=== PATIENT | female | born 1965 | race Two or more races ===

== ENCOUNTER 2018-05-01 11:48 | Emergency (ER) | payer MEDICARE ==
[~2018-05-01] VITALS: Ht 165.1 cm; Wt 99.8 kg
--- OUTSIDE RECORDS SUMMARY | ~2018-05-01 | XMS | Clinical Summary ---
Demographics + + + | Address | [address] | | | [place] [address] | + + + | Home Phone | | + + + | Preferred Language | Unknown | + + + | Marital Status | | + + + | Samaritan Affiliation | 1013 | + + + | Race | Unknown | + + + | Ethnic Group | Unknown | + + + Author + + + | Author | [facility] | | | and [place] | + + + | Organization | [facility] | | | and [place] | + + + | Address | Unknown | + + + | Phone | Unavailable | + + + Support + + +---------+ + | Name | Relationship | Address | Phone | + + +---------+ + | ALEIDA NIEVES ECON | Unknown | | + + +---------+ + | ALEIDA NIEVES | ECON | Unknown | | + + +---------+ + Care Team Providers + +------+ + | Care Healthcare Advisory Services Manager Name | Role | Phone | + +------+ + | Judith Wilson MD | PP | | + +------+ + Allergies Not on File Current Medications Not on file Active Problems Not on file Social History + +-------+ +--------+------+ | Tobacco Use | Types | Packs/Day | Years | Date | | | | | Used | | + +-------+ +--------+------+ | Never Assessed | | | | | + +-------+ +--------+------+ + + + | Sex Assigned at | Date Recorded | | | | + + + | Not on file | | + + + Plan of Treatment + + + + + | Health Maintenance | Due Date | Last Done | Comments | + + + + + | Vaccine: | | | | | Dtap/Tdap/Td (1 - | 2 | | | | Tdap) | | | | + + + + + | Cervical Cancer | | | | | Screening (Pap) | 3 | | | + + + + + | Vaccine: Influenza | | | | | (#1) | 8 | | | + + + + + Results Not on filefrom Last 3 Months"
[2018-05-01] MEDS ORDERED: LYRICA100 MG PO (12:01)
[2018-05-01] MEDS ORDERED: DULOXETINE HCL60 MG PO (12:01)
[2018-05-01] MEDS ORDERED: CLONAZEPAM0.5 MG PO (12:01)
[2018-05-01] MEDS ORDERED: TIZANIDINE HCL4 MG PO (12:01)
[2018-05-01] MEDS ORDERED: TRAZODONE HCL100 MG PO (12:02)
[2018-05-01] MEDS ORDERED: MORPHINE SULFAT15 M1 PO (12:02)
[2018-05-01] MEDS ORDERED: CARBIDOPA-LEVO1 EAC2 PO (12:02)
[2018-05-01] MEDS ORDERED: RISPERDAL0.25 MG PO (12:03)
--- NOTE | 2018-05-01 16:53 | EKG ---
[facility] [address] [facility] [place], [place] [address] Signed Normal sinus rhythm Normal ECG No previous ECGs available Confirmed by ANTONIO MANSFIELD DO ([id number]) on 05/01/2018 4:52:23 PM Electronically Signed By: ANTONIO MANSFIELD DO 05/01/18 1653 PATIENT NAME: CARMEN ROBLES Electrocardiogram DATE OF : 61 PHYSICIAN: ANTONIO MANSFIELD DO REPORT #: [id number] REPORT IS CONFIDENTIAL AND NOT TO BE RELEASED WITHOUT AUTHORIZATION
== END 2018-05-01 14:18 | disposition home or self-care (01) ==
LOC: ED 11:48
DX: R07.9 Chest pain, unspecified (principal); I10 Essential (primary) hypertension; F17.200 Nicotine dependence, unspecified, uncomplicated; Z88.5 Allergy status to narcotic agent; Z79.899 Other long term (current) drug therapy
CPT/HCPCS: 71046; 80053; 83690; 84484; 85025; 93005; 93010; 99285

== ENCOUNTER → 2019-07-16 | Emergency (ER) | payer MEDICARE ==
[~2019-07-16] MED LIST: AMOX TR-K CLV1 EAC1 PO; CARBIDOPA-LEVO1 EAC2 PO; CLONAZEPAM0.5 MG PO; DULOXETINE HCL60 MG PO; KEFLEX500 MG PO; LISINOPRIL20 MG PO; LYRICA100 MG PO; MORPHINE SULFAT15 M1 PO; ONDANSETRON ODT8 MG PO; PEPCID20 MG PO; RISPERDAL0.25 MG PO; SUDOGEST60 MG PO; TIZANIDINE HCL4 MG PO; TRAZODONE HCL100 MG PO; ZYRTEC10 M3 PO
--- OUTSIDE RECORDS SUMMARY | ~2019-07-16 | XMS | Encounter Summary ---
Demographics + + + | Address | [address] | | | [place] [address] | + + + | Home Phone | | + + + | Preferred Language | Unknown | + + + | Marital Status | | + + + | Presybeterian Affiliation | 1013 | + + + | Race | Unknown | + + + | Ethnic Group | Unknown | + + + Author + + + | Author | [facility] | | | and [place] | + + + | Organization | [facility] | | | and [place] | + + + | Address | Unknown | + + + | Phone | Unavailable | + + + Support + + +---------+ + | Name | Relationship | Address | Phone | + + +---------+ + | ALEIDA ROBLES ECON | Unknown | | + + +---------+ + | ALEIDA ROBLES | ECON | Unknown | | + + +---------+ + Care Team Providers + +------+ + | Care Automotive Project Engineer Name | Role | Phone | + +------+ + | Martinez Rahman MD | PCP | | + +------+ + Encounter Details +--------+ + + + + | Date | Type | Department | Care Team | Description | +--------+ + + + + | 05/24/ | Abstract | [facility] | [facility] Rahman | | | 2019 | [facility] | MD [place] [address] | | | | | [address] | [place] | | | | | [place] | [address] | | | | | [address] | | | | | | [phone] | | | +--------+ + + + + Social History + +-------+ +--------+------+ | Tobacco Use | Types | Packs/Day | Years | Date | | | | | Used | | + +-------+ +--------+------+ | Current Every Day | | 0.5 | 20 | | | Smoker | | | | | + +-------+ +--------+------+ + +---+---+---+ | Smokeless Tobacco: | | | | | Never Used | | | | + +---+---+---+ + + +---------+ + | Alcohol Use | Drinks/We | oz/Week | Comments | | | ek | | | + + +---------+ + | No | | | | + + +---------+ + + + + | Sex Assigned at | Date Recorded | | | | + + + | Not on file | | + + + + + + + | Job Start Date | Occupation | Industry | + + + + | Not on file | Not on file | Not on file | + + + + + + + + | Travel History | Travel Start | Travel End | + + + + + + | No recent travel history available. | + + documented as of this encounter Plan of Treatment +--------+---------+ + + + | Date | Type | Specialty | Care Team | Description | +--------+---------+ + + + | 07/26/ | Office | Family Medicine | Martinez Rahman | | | 2019 | Visit | | MD [place] [address] | | | | | | [place] | | | | | | [phone] | | | | | | | | +--------+---------+ + + + documented as of this encounter Procedures + +--------+ + + + | Procedure Name | Priori | Date/Time | Associated Diagnosis | Comments | | | ty | | | | + +--------+ + + + | EXTERNAL LAB: PAP | Routin | 12/22/2013 | | Results for this | | SMEAR | e | | | procedure are in the | | | | | | results section. | + +--------+ + + + | EXTERNAL LAB: HIGH | Routin | 12/22/2013 | | Results for this | | RISK HPV | e | | | procedure are in the | | | | | | results section. | + +--------+ + + + documented in this encounter Results External Lab: PAP Smear (12/22/2013) + + + + + + | Component | Value | Ref Range | Performed | Pathologist | | | | | At | Signature | + + + + + + | Pap Smear, | No evidence of | | EXTERNAL | | | External | intraepithelial lesion | | LAB | | | | or malignancy | | | | + + + + + + + +---------+ + + | Performing | Address | City/State/Zipcode | Phone Number | | Organization | | | | + +---------+ + + | EXTERNAL LAB | | | | + +---------+ + + External Lab: High Risk HPV (12/22/2013) + + + + + + | Component | Value | Ref Range | Performed | Pathologist | | | | | At | Signature | + + + + + + | EXTERNAL: | Negative | | EXTERNAL | | | HIGH RISK | | | LAB | | | HPV | | | | | + + + + + + + +---------+ + + | Performing | Address | City/State/Zipcode | Phone Number | | Organization | | | | + +---------+ + + | EXTERNAL LAB | | | | + +---------+ + + documented in this encounter Visit Diagnoses Not on filedocumented in this encounter"
--- OUTSIDE RECORDS SUMMARY | ~2019-07-16 | XMS | Encounter Summary ---
Demographics + + + | Address | [address] | | | [place] [address] | + + + | Home Phone | | + + + | Preferred Language | Unknown | + + + | Marital Status | | + + + | Taoism Affiliation | 1013 | + + + | Race | Unknown | + + + | Ethnic Group | Unknown | + + + Author + + + | Author | [facility] | | | and [place] | + + + | Organization | [facility] | | | and [...] Team Providers + +------+ + | Care Space Buyer Name | Role | Phone | + +------+ + | Martinez Rahman MD | PCP | | + +------+ + Encounter Details +--------+ + + + + | Date | Type | Department | Care Team | Description | +--------+ + + + + | 04/25/ | Abstract | [facility] | Martinez Rahman | | | 2019 | | [facility] | MD [place] [address] | | | | | [address] | [address] [place] | | | | | [place] | [address] | | | | | [address] | | | | | | [phone] | | | +--------+ + + + [...] [place] | | | | | | [id number] | | | | | | | | +--------+---------+ + + + documented as of this encounter Procedures + +--------+ + + + | Procedure Name | Priori | Date/Time | Associated Diagnosis | Comments | | | ty | | | | + +--------+ + + + | EXTERNAL LAB: MOSHE | Routin | 04/14/2019 | | Results for this | | | e | | | procedure are in the | | | | | | results section. | + +--------+ + + + | EXTERNAL LAB: | Routin | 04/14/2019 | | Results for this | | GLUCOSE | e | | | procedure are in the | | | | | | results section. | + +--------+ + + + | EXTERNAL LAB: | Routin | 04/14/2019 | | Results for this | | TROPONIN T | e | | | procedure are in the | | | | | | results section. | + +--------+ + + + | EXTERNAL LAB: LIPASE | Routin | 04/14/2019 | | Results for this | | | e | | | procedure are in the | | | | | | results section. | + +--------+ + + + | EXTERNAL LAB: ALT | Routin | 04/14/2019 | | Results for this | | | e | | | procedure are in the | | | | | | results section. | + +--------+ + + + | EXTERNAL LAB: AST | Routin | 04/14/2019 | | Results for this | | | e | | | procedure are in the | | | | | | results section. | + +--------+ + + + | EXTERNAL LAB: | Routin | 04/14/2019 | | Results for this | | ALKALINE PHOSPHATASE | e | | | procedure are in the | | | | | | results section. | + +--------+ + + + | EXTERNAL LAB: | Routin | 04/14/2019 | | Results for this | | BILIRUBIN, TOTAL | e | | | procedure are in the | | | | | | results section. | + +--------+ + + + | EXTERNAL LAB: | Routin | 04/14/2019 | | Results for this | | ALBUMIN | e | | | procedure are in the | | | | | | results section. | + +--------+ + + + | EXTERNAL LAB: | Routin | 04/14/2019 | | Results for this | | PROTEIN, TOTAL | e | | | procedure are in the | | | | | | results section. | + +--------+ + + + | EXTERNAL LAB: | Routin | 04/14/2019 | | Results for this | | CALCIUM | e | | | procedure are in the | | | | | | results section. | + +--------+ + + + | EXTERNAL LAB: CARBON | Routin | 04/14/2019 | | Results for this | | DIOXIDE | e | | | procedure are in the | | | | | | results section. | + +--------+ + + + | EXTERNAL LAB: | Routin | 04/14/2019 | | Results for this | | CHLORIDE | e | | | procedure are in the | | | | | | results section. | + +--------+ + + + | EXTERNAL LAB: | Routin | 04/14/2019 | | Results for this | | POTASSIUM | e | | | procedure are in the | | | | | | results section. | + +--------+ + + + | EXTERNAL LAB: SODIUM | Routin | 04/14/2019 | | Results for this | | | e | | | procedure are in the | | | | | | results section. | + +--------+ + + + | EXTERNAL LAB: | Routin | 04/14/2019 | | Results for this | | URINALYSIS | e | | | procedure are in the | | | | | | results section. | + +--------+ + + + | EXTERNAL LAB: CBC | Routin | 04/14/2019 | | Results for this | | | e | | | procedure are in the | | | | | | results section. | + +--------+ + + + | EXTERNAL LAB: Migue TYPE | Routin | 04/14/2019 | | Results for this | | NATURETIC PEPTIDE | e | | | procedure are in the | | | | | | results section. | + +--------+ + + + | EXTERNAL LAB: EGFR | Routin | 04/14/2019 | | Results for this | | | e | | | procedure are in the | | | | | | results section. | + +--------+ + + + | EXTERNAL LAB: | Routin | 04/14/2019 | | Results for this | | CREATININE | e | | | procedure are in the | | | | | | results section. | + +--------+ + + + | URINALYSIS, REFLEX | Routin | 04/14/2019 | | Results for this | | MICROSCOPIC AND/OR | e | | | procedure are in the | | CULTURE | | | | results section. | + +--------+ + + + | CBC WITH | Routin | 04/14/2019 | | Results for this | | DIFFERENTIAL | e | | | procedure are in the | | | | | | results section. | + +--------+ + + + | COMPREHENSIVE | Routin | 04/14/2019 | | Results for this | | METABOLIC PANEL | e | | | procedure are in the | | | | | | results section. | + +--------+ + + + documented in this encounter Results Urinalysis, Reflex Microscopic and/or Culture (04/14/2019) + + + + + + | Component | Value | Ref Range | Performed | Pathologist | | | | | At | Signature | + + + + + + | COLLECTION | Clean Catch | | REFERENCE | | | METHOD 1 | | | LAB | | | | | | [facility] | | + + + + + + | Color | Yellow | Light Yellow, | REFERENCE | | | | | Yellow | LAB | | | | | | [facility] | | + + + + + + | Clarity | Slightly Cloudy | | REFERENCE | | | | | | LAB | | | | | | [facility] | | + + + + + + | Bilirubin, | Negative | Negative | REFERENCE | | | Urine | | | LAB | | | | | | [facility] | | + + + + + + | Urobilinoge | < 0.2 mg/dL | < 0.2 mg/dL, | REFERENCE | | | n, Urine | | 1.0 mg/dL, 4.0 | LAB | | | | | mg/dL, Normal, | [facility] | | | | | 1.0 E.U./dL, | | | | | | 0.2 E.U./dL, | | | | | | 0.2 mg/dL, | | | | | | Negative, 1 | | | | | | mg/dL, <2.0 | | | | | | mg/dL | | | + + + + + + | Nitrite, | Negative | Negative | REFERENCE | | | Urine | | | LAB | | | | | | [facility] | | + + + + + + | WBC UA | 30 (A) | 0 - 4 /HPF | REFERENCE | | | | | | LAB | | | | | | [facility] | | + + + + + + | CRYSTAL UA | Negative | | REFERENCE | | | | | | LAB | | | | | | [facility] | | + + + + + + | BACTERIA UA | 1+ (A) | Negative /HPF | REFERENCE | | | | | | LAB | | | | | | [facility] | | + + + + + + | SQUAMOUS | 0-2 | 0 - 2 /LPF | REFERENCE | | | EPITHELIAL | | | LAB | | | UA | | | [facility] | | + + + + + + | MUCUS UA | Present (A) | Negative /LPF | REFERENCE | | | | | | LAB | | | | | | [facility] | | + + + + + + + + | Specimen | + + | Urine | + + + + + + + | Performing | Address | City/State/Zipcode | Phone Number | | Organization | | | | + + + + + | REFERENCE LAB | [address] | [place] [address] | [phone] | | [facility] | | | | + + + + + External Lab: Lipase (04/14/2019) + +-------+ + + + | Component | Value | Ref Range | Performed | Pathologist | | | | | At | Signature | + +-------+ + + + | Lipase, | 39 | 11 - 82 | REFERENCE | | | External | | | LAB | | | | | | [facility] | | + +-------+ + + + + + + + + | Performing | Address | City/State/Zipcode | Phone Number | | Organization | | | | + + + + + | REFERENCE LAB | [address] | [place] [address] | [phone] | | [facility] | | | | + + + + + External Lab: Urinalysis (04/14/2019) + + + + + + | Component | Value | Ref Range | Performed | Pathologist | | | | | At | Signature | + + + + + + | UA Blood, | Negative | | REFERENCE | | | External | | | LAB | | | | | | [facility] | | + + + + + + | UA Glucose, | Normal | | REFERENCE | | | External | | | LAB | | | | | | [facility] | | + + + + + + | UA Ketones, | Negative | | REFERENCE | | | External | | | LAB | | | | | | [facility] | | + + + + + + | UA Ph, | 6 | 5 - 9 | REFERENCE | | | External | | | LAB | | | | | | [facility] | | + + + + + + | UA | Negative | | REFERENCE | | | Proteins, | | | LAB | | | External | | | [facility] | | + + + + + + | UA RBC, | 2 | 0 - 4 | REFERENCE | | | External | | | LAB | | | | | | [facility] | | + + + + + + | UA Specific | 1.016 | 1.005 - 1.03 | REFERENCE | | | [place], | | | LAB | | | External | | | [facility] | | + + + + + + | UA | Small | | REFERENCE | | | Leukocyte | | | LAB | | | Esterase, | | | [facility] | | | External | | | | | + + + + + + + + + + + | Performing | Address | City/State/Zipcode | Phone Number | | Organization | | | | + + + + + | REFERENCE LAB | [address] | [place] [address] | [phone] | | [facility] | | | | + + + + + CBC with Differential (04/14/2019) + +-------+ + + + | Component | Value | Ref Range | Performed | Pathologist | | | | | At | Signature | + +-------+ + + + | MCH | 31.0 | 27.0 - 33.0 pg | REFERENCE | | | | | | LAB | | | | | | [facility] | | + +-------+ + + + | MCHC | 34.0 | 30.0 - 36.0 | REFERENCE | | | | | g/dL | LAB | | | | | | [facility] | | + +-------+ + + + | % Basophils | 0.9 | 0.0 - 2.0 % | REFERENCE | | | | | | LAB | | | | | | [facility] | | + +-------+ + + + + + | Specimen | + + | Blood | + + + + + + + | Performing | Address | City/State/Zipcode | Phone Number | | Organization | | | | + + + + + | REFERENCE LAB | [facility] | [place] [address] | [phone] | | [facility] | | | | + + + + + External Lab: CBC (04/14/2019) + +-------+ + + + | Component | Value | Ref Range | Performed | Pathologist | | | | | At | Signature | + +-------+ + + + | WBC, | 10.2 | 4.5 - 11 | REFERENCE | | | External | | | LAB | | | | | | [facility] | | + +-------+ + + + | HGB, | 14.3 | 12 - 16 | REFERENCE | | | External | | | LAB | | | | | | [facility] | | + +-------+ + + + | HCT, | 42.3 | 35 - 45 | REFERENCE | | | External | | | LAB | | | | | | [facility] | | + +-------+ + + + | PLT, | 421 | 140 - 440 | REFERENCE | | | External | | | LAB | | | | | | [facility] | | + +-------+ + + + | Neutrophils | 54.5 | 39 - 80 | REFERENCE | | | %, | | | LAB | | | External | | | [facility] | | + +-------+ + + + | Lymphocytes | 36.2 | 24 - 44 | REFERENCE | | | %, | | | LAB | | | External | | | [facility] | | + +-------+ + + + | Monocytes | 6.6 | 0 - 12 | REFERENCE | | | %, External | | | LAB | | | | | | [facility] | | + +-------+ + + + | Eosinophils | 1.8 | 0 - 6 | REFERENCE | | | %, | | | LAB | | | External | | | [facility] | | + +-------+ + + + | RBC, | 4.67 | 3.8 - 5.1 | REFERENCE | | | External | | | LAB | | | | | | [facility] | | + +-------+ + + + | MCV, | 91 | 81 - 99 | REFERENCE | | | External | | | LAB | | | | | | [facility] | | + +-------+ + + + | RDW, | 13.4 | 10.5 - 15 | REFERENCE | | | External | | | LAB | | | | | | [facility] | | + +-------+ + + + + + + + + | Performing | Address | City/State/Zipcode | Phone Number | | Organization | | | | + + + + + | REFERENCE LAB | [address] | [place] [address] | [phone] | | [facility] | | | | + + + + + Comprehensive Metabolic Panel (04/14/2019) + +--------+ + + + | Component | Value | Ref Range | Performed | Pathologist | | | | | At | Signature | + +--------+ + + + | Anion Gap | 15 (A) | 7 - 12 mmol/L | REFERENCE | | | | | | LAB | | | | | | [facility] | | + +--------+ + + + | Bun/Creatin | 13 | 6 - 28.6 | REFERENCE | | | ine | | | LAB | | | | | | [facility] | | + +--------+ + + + | Globulin | 3.3 | 1.8 - 3.5 | REFERENCE | | | | | | LAB | | | | | | [facility] | | + +--------+ + + + | Albumin/Lois | 1.2 | 1.1 - 2.4 | REFERENCE | | | bulin Ratio | | | LAB | | | | | | [facility] | | + +--------+ + + + + + | Specimen | + + | Blood | + + + + + + + | Performing | Address | City/State/Zipcode | Phone Number | | Organization | | | | + + + + + | REFERENCE LAB | [address] | [place] [address] | [phone] | | [facility] | | | | + + + + + External Lab: MOSHE (04/14/2019) + +-------+ + + + | Component | Value | Ref Range | Performed | Pathologist | | | | | At | Signature | + +-------+ + + + | BUN, | 14 | 6 - 23 | REFERENCE | | | External | | | LAB | | | | | | [facility] | | + +-------+ + + + + + + + + | Performing | Address | City/State/Zipcode | Phone Number | | Organization | | | | + + + + + | REFERENCE LAB | [address] | [place] [address] | [phone] | | [facility] | | | | + + + + + External Lab: Glucose (04/14/2019) + +---------+ + + + | Component | Value | Ref Range | Performed | Pathologist | | | | | At | Signature | + +---------+ + + + | Glucose, | 130 (A) | 70 - 100 | REFERENCE | | | External | | | LAB | | | | | | [facility] | | + +---------+ + + + + + + + + | Performing | Address | City/State/Zipcode | Phone Number | | Organization | | | | + + + + + | REFERENCE LAB | [address] [place] [address] | [place] [address] | [phone] | | [facility] | | | | + + + + + External Lab: Troponin T (04/14/2019) + +-------+ + + + | Component | Value | Ref Range | Performed | Pathologist | | | | | At | Signature | + +-------+ + + + | Troponin T, | 0.01 | 0.01 | REFERENCE | | | External | | | LAB | | | | | | [facility] | | + +-------+ + + + + + + + + | Performing | Address | City/State/Zipcode | Phone Number | | Organization | | | | + + + + + | REFERENCE LAB | [facility] | [place] [address] | [phone] | | [facility] | | | | + + + + + External Lab: ALT (04/14/2019) + +-------+ + + + | Component | Value | Ref Range | Performed | Pathologist | | | | | At | Signature | + +-------+ + + + | ALT, | 4 (A) | 7 - 52 | REFERENCE | | | External | | | LAB | | | | | | [facility] | | + +-------+ + + + + + + + + | Performing | Address | City/State/Zipcode | Phone Number | | Organization | | | | + + + + + | REFERENCE LAB | [address] | [place] [address] | [phone] | | [facility] | | | | + + + + + External Lab: BETTY (04/14/2019) + +-------+ + + + | Component | Value | Ref Range | Performed | Pathologist | | | | | At | Signature | + +-------+ + + + | AST, | 19 | 13 - 39 | REFERENCE | | | External | | | LAB | | | | | | [facility] | | + +-------+ + + + + + + + + | Performing | Address | City/State/Zipcode | Phone Number | | Organization | | | | + + + + + | REFERENCE LAB | [address] | [place] [address] | [phone] | | [facility] | | | | + + + + + External Lab: Alkaline Phosphatase (04/14/2019) + +-------+ + + + | Component | Value | Ref Range | Performed | Pathologist | | | | | At | Signature | + +-------+ + + + | ALP, | 76 | 31 - 130 | REFERENCE | | | External | | | LAB | | | | | | [facility] | | + +-------+ + + + + + + + + | Performing | Address | City/State/Zipcode | Phone Number | | Organization | | | | + + + + + | REFERENCE LAB | [facility] | [place] [address] | [phone] | | [facility] | | | | + + + + + External Lab: Bilirubin, Total (04/14/2019) + +-------+ + + + | Component | Value | Ref Range | Performed | Pathologist | | | | | At | Signature | + +-------+ + + + | Bilirubin, | 0.4 | 0 - 1.2 | REFERENCE | | | Total, | | | LAB | | | External | | | [facility] | | + +-------+ + + + + + + + + | Performing | Address | City/State/Zipcode | Phone Number | | Organization | | | | + + + + + | REFERENCE LAB | [address] | [place] [address] | [phone] | | [facility] | | | | + + + + + External Lab: Albumin (04/14/2019) + +-------+ + + + | Component | Value | Ref Range | Performed | Pathologist | | | | | At | Signature | + +-------+ + + + | Albumin, | 4.1 | 3.5 - 5 | REFERENCE | | | External | | | LAB | | | | | | [facility] | | + +-------+ + + + + + + + + | Performing | Address | City/State/Zipcode | Phone Number | | Organization | | | | + + + + + | REFERENCE LAB | [address] | [place] [address] | [phone] | | [facility] | | | | + + + + + External Lab: Protein, Total (04/14/2019) + +-------+ + + + | Component | Value | Ref Range | Performed | Pathologist | | | | | At | Signature | + +-------+ + + + | Protein, | 7.4 | 6 - 8.3 | REFERENCE | | | Total, | | | LAB | | | External | | | [facility] | | + +-------+ + + + + + + + + | Performing | Address | City/State/Zipcode | Phone Number | | Organization | | | | + + + + + | REFERENCE LAB | [address] | [place] [address] | [phone] | | [facility] | | | | + + + + + External Lab: Calcium (04/14/2019) + +-------+ + + + | Component | Value | Ref Range | Performed | Pathologist | | | | | At | Signature | + +-------+ + + + | Calcium, | 9.6 | 8.5 - 10.3 | REFERENCE | | | External | | | LAB | | | | | | [facility] | | + +-------+ + + + + + + + + | Performing | Address | City/State/Zipcode | Phone Number | | Organization | | | | + + + + + | REFERENCE LAB | [address] | [place] [address] | [phone] | | [facility] | | | | + + + + + External Lab: Carbon Dioxide (04/14/2019) + +-------+ + + + | Component | Value | Ref Range | Performed | Pathologist | | | | | At | Signature | + +-------+ + + + | Carbon | 27 | 19 - 31 | REFERENCE | | | Dioxide, | | | LAB | | | External | | | [facility] | | + +-------+ + + + + + + + + | Performing | Address | City/State/Zipcode | Phone Number | | Organization | | | | + + + + + | REFERENCE LAB | [address] | [place] [address] | [phone] | | [facility] | | | | + + + + + External Lab: Chloride (04/14/2019) + +-------+ + + + | Component | Value | Ref Range | Performed | Pathologist | | | | | At | Signature | + +-------+ + + + | Chloride, | 100 | 95 - 112 | REFERENCE | | | External | | | LAB | | | | | | [facility] | | + +-------+ + + + + + + + + | Performing | Address | City/State/Zipcode | Phone Number | | Organization | | | | + + + + + | REFERENCE LAB | [address] | [place] [address] | [phone] | | [facility] | | | | + + + + + External Lab: Potassium (04/14/2019) + +-------+ + + + | Component | Value | Ref Range | Performed | Pathologist | | | | | At | Signature | + +-------+ + + + | Potassium, | 3.8 | 3.6 - 5.1 | REFERENCE | | | External | | | LAB | | | | | | [facility] | | + +-------+ + + + + + + + + | Performing | Address | City/State/Zipcode | Phone Number | | Organization | | | | + + + + + | REFERENCE LAB | [address] | [place] [address] | [phone] | | [facility] | | | | + + + + + External Lab: Sodium (04/14/2019) + +-------+ + + + | Component | Value | Ref Range | Performed | Pathologist | | | | | At | Signature | + +-------+ + + + | Sodium, | 138 | 132 - 143 | REFERENCE | | | External | | | LAB | | | | | | [facility] | | + +-------+ + + + + + + + + | Performing | Address | City/State/Zipcode | Phone Number | | Organization | | | | + + + + + | REFERENCE LAB | [address] | [place] [address] | [phone] | | [facility] | | | | + + + + + External Lab: B Type Naturetic Peptide (04/14/2019) + +-------+ + + + | Component | Value | Ref Range | Performed | Pathologist | | | | | At | Signature | + +-------+ + + + | B-Type | 7 | 0 - 100 | REFERENCE | | | Naturetic | | | LAB | | | Peptide, | | | [facility] | | | External | | | | | + +-------+ + + + + + | Specimen | + + | Blood | + + + + + + + | Performing | Address | City/State/Zipcode | Phone Number | | Organization | | | | + + + + + | REFERENCE LAB | [address] | [place] [address] | [phone] | | [facility] | | | | + + + + + External Lab: eGFR (04/14/2019) + +--------+ + + + | Component | Value | Ref Range | Performed | Pathologist | | | | | At | Signature | + +--------+ + + + | eGFR, | 53 (A) | 60 | REFERENCE | | | External | | | LAB | | | | | | [facility] | | + +--------+ + + + + + | Specimen | + + | Blood | + + + + + + + | Performing | Address | City/State/Zipcode | Phone Number | | Organization | | | | + + + + + | REFERENCE LAB | [address] [place] [address] | [place] [address] | [phone] | | [facility] | | | | + + + + + External Lab: Creatinine (04/14/2019) + +-------+ + + + | Component | Value | Ref Range | Performed | Pathologist | | | | | At | Signature | + +-------+ + + + | Creatinine, | 1.08 | 0.7 - 1.33 | REFERENCE | | | External | | | LAB | | | | | | [facility] | | + +-------+ + + + + + | Specimen | + + | Blood | + + + + + + + | Performing | Address | City/State/Zipcode | Phone Number | | Organization | | | | + + + + + | REFERENCE LAB | [address] | [place] [address] | [phone] | | [facility] | | | | + + + + + documented in this encounter Visit Diagnoses Not on filedocumented in this encounter"
--- OUTSIDE RECORDS SUMMARY | ~2019-07-16 | XMS | Encounter Summary ---
Demographics + + + | Address | [address] | | | [place] [address] | + + + | Home Phone | | + + + | Preferred Language | Unknown | + + + | Marital Status | | + + + | Muslim Affiliation | 1013 | + + + | Race | Unknown | + + + | Ethnic Group | Unknown | + + + Author + + + | Author | [facility] | | | and [place] | + + + | Organization | [facility] | | | and [...] Team Providers + +------+ + | Care Ore Puncher Name | Role | Phone | + +------+ + | Martinez Rahman MD | PCP | | + +------+ + Reason for Visit + + + | Reason | Comments | + + + | Medication Refill | | + + + Encounter Details +--------+--------+ + + + | Date | Type | Department | Care Team | Description | +--------+--------+ + + + | 06/19/ | Refill | [facility] | Martinez Rahman | Medication Refill | | 2019 | | [facility] | MD [place] [address] | | | | | [address] | [place] | | | | | [place] | [address] | | | | | [address] | | | | | | [phone] | | | +--------+--------+ + + + Social History + +-------+ [...] [place] | | | | | | [id number] | | | | | | | | +--------+---------+ + + + documented as of this encounter Visit Diagnoses Not on filedocumented in this encounter"
--- OUTSIDE RECORDS SUMMARY | ~2019-07-16 | XMS | Clinical Summary ---
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 [place] | | | | | | | [phone] | + +--------+ +--------+ + + Advance Directives Patient has advance care planning documents on file. For more information, please contact:[facility] [place] [address]
--- OUTSIDE RECORDS SUMMARY | ~2019-07-16 | XMS | Encounter Summary ---
Demographics + + + | Address | [address] | | | [place] [address] | + + + | Home Phone | | + + + | Preferred Language | Unknown | + + + | Marital Status | | + + + | Mandaeism Affiliation | 1013 | + + + | Race | Unknown | + + + | Ethnic Group | Unknown | + + + Author + + + | Author | [facility] | | | and [place] | + + + | Organization | [facility] | | | [...] Team Providers + +------+ + | Care Executive Administrative Asst Name | Role | Phone | + +------+ + | Martinez Rahman MD | PCP | | + +------+ + Reason for Visit +--------+ + | Reason | Comments | +--------+ + | Nausea | Patient was seen at ER on 05/05/19 at [facility]. We don't have | | | records. | +--------+ + Encounter Details +--------+---------+ + + + | Date | Type | Department | Care Team | Description | +--------+---------+ + + + | 04/18/ | Office | [facility] | Martinez Rahman | Hypertension, | | 2019 | Visit | [facility] | MD Tonio [address] | unspecified type | | | | [address] | [address] [place] | (Primary Dx); High | | | | [place] | [address] | cholesterol; | | | | [address] | | Restless legs; | | | | [phone] | | Arthritis; Plantar | | | [...] | | | finding in urine | +--------+---------+ + + + Social History + +-------+ [...] + + documented as of this encounter Last Filed Vital Signs + + + + | Vital Sign | Reading | Time Taken | + + + + | Blood Pressure | 118/80 | 04/18/2019 1205 PDT | + + + + | Pulse | 102 | 04/18/20191204 PDT | + + + + | Temperature | 36.7 C (98.1 F) | 04/18/20191204 PDT | + + + + | Respiratory Rate | 20 | 04/18/20191204 PDT | + + + + | Oxygen Saturation | 96% | 04/18/20191204 PDT | + + + + | Inhaled Oxygen | - | - | | Concentration | | | + + + + | Weight | 101.5 kg (223 lb | 04/18/20191204 PDT | | | 12.3 oz) | | + + + + | Height | 165.1 cm (5' 5") | 04/18/2019 1205 PDT | + + + + | Body Mass Index | 37.24 | 04/18/2019 1205 PDT | + + + + documented in this encounter Patient Instructions Patient Instructions Martinez Rahman MD - 04/18/2019 12:00 PDT Controlling Your Cholesterol Cholesterol is a waxy substance. It travels in your blood through the blood vessels. When y ou have high cholesterol, it can build up along the newton of the blood vessels. This makes t he vessels narrower and decreases blood flow. You are then at greater risk of having a heart attack or a stroke. Good and bad cholesterol Lipids are fats, and blood is mostly water. Fat and water don't mix. So our bodies need lip oproteins (lipids inside a protein shell) to carry the lipids. The protein shell carries its lipids through the bloodstream. There are two main kinds of lipoproteins: LDL (low-density lipoprotein) is known as "bad cholesterol." It mainly carries cholester ol. It delivers this cholesterol to body cells. Excess LDL cholesterol will build up in jennifer ry newton. This increases your riskfor heart disease and stroke. HDL (high-density lipoprotein) is known as "good cholesterol." This protein shell collec ts excess cholesterol that LDLs have left behind on blood vessel newton. That's why high leve ls of HDL cholesterol can decrease your risk of heart disease and stroke. Controlling cholesterol levels Total cholesterol includes LDL and HDL cholesterol, as well as other fats in the bloodstrea m. If your total cholesterol is high, follow the steps below to help lower your total choles terol level: Eat less unhealthy fat Cut back on saturated fats and trans fats (also called hydrogenated) by selecting lean c uts of meat, low-fat dairy, and using oils instead of solid fats. Limit baked goods, process ed meats, and fried foods. A diet that s high in these fats increases your bad cholesterol . It's not enough to just cut back on foods containing cholesterol. Eat about 2 servings of fish per week. Most fish contain omega-3 fatty acids. These help lower blood cholesterol. Eat more whole grains and soluble fiber (such as oat bran). These lower overall choleste rol. Be active Choose an activity you enjoy. Walking, swimming, and riding a bike are some good ways to be active. Start at a level where you feel comfortable. Increase your time and pace a little each w knik. Work up to 30 to 40 minutes of moderate to high intensity physical activity at least 3 t o 4 days per week. Remember, some activity is better than none. If you haven't been exercising regularly, start slowly. Check with your healthcare provi colby to make sure the exercise plan is right for you. Quit smoking Quitting smoking can improve your lipid levels. It also lowers your risk for heart disease and stroke. Manage your weight If you are overweight or obese, your healthcare provider will work with you to lose weight and lower your BMI (body mass index) to a normal or near-normal level. Making diet changes a nd increasing physical activity can help. Take medicine as directed Many people need medicine to get their LDL levels to a safe level. Medicine to lower choles terol levels is effective and safe. Taking medicine is not a substitute for exercise or watc ryan your diet! Your healthcare provider can tell you whether you might benefit from a graham sterol-lowering medicine. Date Last Reviewed: 02/11/201719990238-0889 [employer] [address] [place] [address], [place] [address]. All righ ts reserved. This information is not intended as a substitute for professional medical care. Always follow your healthcare professional's instructions. Controlling Your Cholesterol Cholesterol is a waxy substance. It travels in your blood through the blood vessels. When y ou have high cholesterol, it can build up along the newton of the blood vessels. This makes t he vessels narrower and decreases blood flow. You are then at greater risk of having a heart attack or a stroke. Good and bad cholesterol Lipids are fats, and blood is mostly water. Fat and water don't mix. So our bodies need lip oproteins (lipids inside a protein shell) to carry the lipids. The protein shell carries its lipids through the bloodstream. There are two main kinds of lipoproteins: LDL (low-density lipoprotein) is known as "bad cholesterol." It mainly carries cholester ol. It delivers this cholesterol to body cells. Excess LDL cholesterol will build up in jennifer ry newtno. This increases your riskfor heart disease and stroke. HDL (high-density lipoprotein) is known as "good cholesterol." This protein shell collec ts excess cholesterol that LDLs have left behind on blood vessel newton. That's why high leve ls of HDL cholesterol can decrease your risk of heart disease and stroke. Controlling cholesterol levels Total cholesterol includes LDL and HDL cholesterol, as well as other fats in the bloodstrea m. If your total cholesterol is high, follow the steps below to help lower your total choles terol level: Eat less unhealthy fat Cut back on saturated fats and trans fats (also called hydrogenated) by selecting lean c uts of meat, low-fat dairy, and using oils instead of solid fats. Limit baked goods, process ed meats, and fried foods. A diet that s high in these fats increases your bad cholesterol . It's not enough to just cut back on foods containing cholesterol. Eat about 2 servings of fish per week. Most fish contain omega-3 fatty acids. These help lower blood cholesterol. Eat more whole grains and soluble fiber (such as oat bran). These lower overall choleste rol. Be active Choose an activity you enjoy. Walking, swimming, and riding a bike are some good ways to be active. Start at a level where you feel comfortable. Increase your time and pace a little each w knik. Work up to 30 to 40 minutes of moderate to high intensity physical activity at least 3 t o 4 days per week. Remember, some activity is better than none. If you haven't been exercising regularly, start slowly. Check with your healthcare provi colby to make sure the exercise plan is right for you. Quit smoking Quitting smoking can improve your lipid levels. It also lowers your risk for heart disease and stroke. Manage your weight If you are overweight or obese, your healthcare provider will work with you to lose weight and lower your BMI (body mass index) to a normal or near-normal level. Making diet changes a nd increasing physical activity can help. Take medicine as directed Many people need medicine to get their LDL levels to a safe level. Medicine to lower choles terol levels is effective and safe. Taking medicine is not a substitute for exercise or watc ryan your diet! Your healthcare provider can tell you whether you might benefit from a graham sterol-lowering medicine. Date Last Reviewed: 02/11/201719999714-5131 [employer] [address] [place] [address], [place] [address]. All righ ts reserved. This information is not intended as a substitute for professional medical care. Always follow your healthcare professional's instructions. Managing Fibromyalgia SMALL: BIG: Fibromyalgia is a chronic illness that causes pain in specific points on the pavel dy, stiffness, and constant tiredness (fatigue). But it doesn t have to keep you from doin g what you enjoy. You can feel better. You and your healthcare provider can work together to develop a plan. Take medicines as directed You may be given medicinesto help reduce pain and improve sleep. Several medications are approved to treat fibromyalgia. Two were originally designed to kaleigh at depression. They are duloxetine, andmilnacipran.A third, called pregaballin, was deve loped to treat nerve pain. Other medicinesinclude pain relievers such as acetaminophen or stronger opioids. These may be prescribed short term. Nonsteroidal anti-inflammatory drugs(NSAIDs)are used to relieve pain. Theseinclude ib uprofen and naproxen. Get exercise Gentle exercise can help lessen your pain. Try these tips: Choose activities that are gentle on your joints, such as walking, biking, and swimming or other water exercises. Don t push yourself too hard. Build up your strength and endurance slowly, over time. Stick to it. For the most relief, exercise should become part of your daily life. Get a good night s rest To help you get more sleep, try the tips below: Sleep only in a bed, not on a couch or chair. Don t watch TV, read, or work in bed. Go to bed and get up at the same time each day. Try not to take naps. Don t usealcohol, caffeine, or tobacco for at least 3 hours before going to bed. Don t drinkfluids in the evening to avoid having to get up to urinate. Other things you can do No one knows what causes fibromyalgia. But stress, poor eating habits, and extra weight can make it worse. These tips may help you feel better: Eat a balanced diet with plenty of fruits and vegetables, whole grains, lean protein, an d low-fat or nonfat dairy products. Maintain a healthy weight. Learn ways to reduce or manage the stress in your life. Ask your healthcare provider for resources to help you make changes. Or check out the re sources below. Resources Arthritis Foundation www.arthritis.org National Fibromyalgia Association www.fmaware.org [place] Fibromyalgia Syndrome Association www.afsafund.org Date Last Reviewed: 02/11/201819996968-4434 [employer]. [address] [place] [address], [place] [address]. All righ ts reserved. This information is not intended as a substitute for professional medical care. Always follow your healthcare professional's instructions. documented in this encounter Progress Notes Martinez Rahman MD - 04/18/2019 1200 PDT Subjective: Pinky Robles is a 53 y.o. female patient of Martinez Rahman MD. Chief Complaint: Nausea (Patient was seen at ER on 05/05/19 at [facility]. We don't have r ecords. ) HPI: Patient here with multiple conditions and concerns including fibromyalgia, weight, ret ention, disturbance, lipidemia, RLS, plantar fasciitis, disturbance, anxiety, depression, al lergies, history of fatigue, DJD and others She was recently seen at [facility] ER in [place] et for gastroenteritis appears to be resolving he had no UTI symptoms but there is a quest ion apparently given antibiotic but I do not see indication on urinalysis either. Been abou t her usual self lately otherwise. See list of medications including Sinemet, Zyrtec if nec essary. Occasional clonazepam for breakthrough anxiety, fluoxetine, lisinopril, Zofran, pre gabalin, amantadine and trazodone at bedtime. This regimen seems to work reasonable for her but she needs to lose weight and quit smoking which I believe will significantly help she agrees. Notes last female exam and Pap smear 1 year ago and mammograms okay at the same ti me at [facility]. Currently do mammograms every 2 years until ag e 73 and with double negative Pap could be as much as 3 to 5 years next exam will breast exa ms at the same frequency of mammograms can be useful advised denies chest pain dyspnea donelldilshad hernandez does have exercise intolerance due to fibromyalgia she is encouraged to mobilize get weig ht down stop smoking and continue her Rx is. Immunizations Tdap 10/18/2018, Shingrix at pharm acy, get flu shot yearly will receive Pneumovax 23 today and in 1 year Prevnar 13 labs-Pepci d after discussion. Anoscopy okay 04/26 due 05/06. Other habits or high risk behaviors. Lab oratory seen recently to date but due lipids and advise when she is well for at least 4 to 6 weeks. Last visit and advice. H eye checks reasonable and notes reasonable control of anx iety and depression. No records. Next labs will be able to advise further. Conditions yifan ear to be under fair control. Await records of last DEXA scan and advise. Past medical his tory surgical history family history is reviewed and advised. Allergies Allergen Reactions Altretamine Bupropion Other reaction(s): Seizures Pramipexole Tramadol Other reaction(s): Seizures Medications: Outpatient Encounter Medications as of 04/18/2019 Medication Sig Dispense Refill carbidopa-levodopa (SINEMET) 25-250 mg per tablet Take 1 tablet by mouth Twice daily a s needed. 180 tablet 0 cephalexin (KEFLEX) 500 mg capsule Take 1 capsule by mouth 2 times daily. 0 cetirizine (ZYRTEC) 10 mg tablet Take 1 tablet by mouth Daily. clonazePAM (KLONOPIN) 0.5 MG disintegrating tablet Take 1 tablet by mouth. DULoxetine (CYMBALTA) [address] capsule Take 2 capsules by mouth Daily. 180 capsule 0 lisinopril (PRINIVIL, ZESTRIL) 20 mg tablet TAKE 1 TABLET BY MOUTH DAILY 30 tablet 1 ondansetron (ZOFRAN ODT) 8 mg disintegrating tablet DISSOLVE 1 TABLET IN MOUTH THREE TI MES DAILY FOR NAUSEA VOMITING 1 pregabalin (LYRICA) 100 mg capsule 1 twice daily for 1 week then increase to 1-3 times daily. May further increase to twice daily if necessary 270 capsule 2 raNITIdine (ZANTAC) 150 mg tablet Take 1 tablet by mouth See Admin Instructions. 1-2 ta bs daily 60 tablet 0 risperiDONE (RISPERDAL) 0.5 mg tablet TAKE 1 TABLET BY MOUTH ONCE DAILY 90 tablet 0 tiZANidine (ZANAFLEX) 4 mg tablet Take 4 mg by mouth 4 times daily as needed. traZODone (DESYREL) 100 mg tablet Take 1 tablet by mouth nightly. 90 tablet 0 No facility-administered encounter medications on file as of 04/18/2019. Past Medical History She has past medical history as seen noted and in records and reviewed today Past Surgical History She has a past surgical history that includes Colonoscopy (patient says about 5 years); Ext ernal Lab: PAP Smear (2015); Dilation and curettage of uterus; knee surgery (one R knee surg soo was 2007); and DIAGNOSTIC DIGITAL MAMM BILAT (03/28/2018). Family History: Her family history includes Arthritis in her father, maternal grandmother, mother, paternal grandmother, and sister; Depression in her daughter, father, maternal grandmother, and sist er; Diabetes in her father and maternal grandmother; Fibromyalgia in her sister; Hearing los s in her mother; Heart disease in her father, maternal grandfather, and mother; High blood p ressure in her mother and sister; Mental illness in her daughter; Other (see comment) in her father; Substance abuse in her daughter; Vision loss in her mother and sister. Social History: Social History Socioeconomic History Marital status: Spouse name: Not on file Number of children: Not on file Years of education: Not on file Highest education level: Not on file Tobacco Use Smoking status: Current Every Day Smoker Packs/day: 0.50 Years: 20.00 Pack years: 10.00 Smokeless tobacco: Never Used Substance and Sexual Activity Alcohol use: No Drug use: No Review of Systems View of systems shows no other pertinent problems or new difficulties on 10 system review e xcept as noted above previously and here in. Objective: BP 118/80 | Pulse 102 | Temp 36.7 C (98.1 F) (Temporal) | Resp 20 | Ht 1.651 m (5' 5") | Wt 101.5 kg (223 lb 12.3 oz) | SpO2 96% | BMI 37.24 kg/m Constitutional: Well developed, well nourished, no acute distress, non-toxic appearance Eyes: PERRL, conjunctiva normal, no discharge fundi reasonable HENT: Atraumatic, external ears normal, nose normal, oropharynx moist, no pharyngeal exuda dhiraj. Neck- normal range of motion, no tenderness, supple thyroid area okay no adenopathy or bruits Respiratory: No respiratory distress, normal breath sounds, no rales, no wheezing Cardiovascular: Normal rate, normal rhythm, no murmurs, no gallops, no rubs GI: Soft, nondistended, normal bowel sounds, nontender, no organomegaly, no mass, no rebou nd, no guarding : No costovertebral angle tenderness Musculoskeletal: No edema, no tenderness, no deformities. Back- no tenderness except at cl assic tender points for fibromyalgia Integument: Well hydrated, no rash or lesions Lymphatic: No lymphadenopathy noted Neurologic: Alert & oriented x 3, CN 2-12 normal, normal motor function, normal sensory fu nction, no focal deficits noted Psychiatric: Speech and behavior appropriate. Mood affect intellect and memory appear yifan ropriate no evidence of self-harm ideation or thought of harm to others. Results for orders placed or performed in visit on 10/18/18 ALT Result Value Ref Range ALT 28 14 - 59 U/L Lipid Panel Result Value Ref Range Triglycerides 203 (H) 30 - 150 mg/dL Cholesterol 281 (H) 150 - 200 mg/dL HDL 94 (H) 40 - 60 mg/dL Chol/HDL Ratio 3.0 LDL, Calculated 146 (H) <130 mg/dL TSH Result Value Ref Range TSH 1.69 0.36 - 3.74 uIU/mL Creatinine Result Value Ref Range Creatinine 1.13 (H) 0.55 - 1.02 mg/dL eGFR if not 50 (L) >=60 mL/min/1.73m2 Assessment and Plans: Pinky was seen today for nausea. Diagnoses and all orders for this visit: Hypertension, unspecified type High cholesterol Restless legs Arthritis Plantar fasciitis Fibromyalgia Depression, unspecified depression type Chronic neck and back pain Insomnia, unspecified type Environmental allergies Anxiety Fatigue, unspecified type Gastroenteritis Other orders - Pneumococcal polysaccharide vaccine 23-valent greater than or equal to 2yo subcutaneo us/IM [[id number]] Requested Prescriptions No prescriptions requested or ordered in this encounter Gastroenteritis resolving. Care advised. And get UA and labs once over GE at least 1-2 wee ks and advise. Appears up on most but stop tobacco and get wt down-explained. Rx same. Keep up with all advised. disability form completed due to fibromyalgia. Return in about 3 months (around 07/19/2019). Care instructions and warning signs were discussed. Medications per orders. Side effects discussed. Labs and investigations per orders. This note is dictated using BrainBot voice recognition software. This note was dictated but not proofread. It may contain some grammatical errors. documented in this encounter Plan of Treatment +--------+---------+ + + + | Date | Type | Specialty | Care Team | Description | +--------+---------+ + + + | 07/26/ | Office | Family Medicine | Martinez Rahman | | | 2019 | Visit | | MD Tonio [address] | | | | | | [place] | | | | | | [id number] | | | | | | | | +--------+---------+ + + + documented as of this encounter Results Urinalysis with Microscopic with Culture if [...] - 1.030 | [facility] | | | [place] | | | [facility] | | | | | [facility] | | | | | | [facility] - | | | | | | LABORATORY | | + + + + + -+ | Protein, | 30 mg/dL (A) | Negative | [facility] | | | Urine | | | [facility] | | [...] | | | | | | [facility] | | | | | | [facility] [...] | | | [facility] | | | [facility] | | | | | | [facility] | | | | | | [facility] - | | | | | | LABORATORY | | + + + + + -+ | URINE | Urine Culture Not | | [facility] | | | COMMENT | Indicated | | [facility] | | | [...] | + + + + + | [facility] | [address] | [place] | [phone] | | [facility] | | [id number] | | | - LABORATORY | | | | + + + + + documented in this encounter Visit Diagnoses + + | Diagnosis | + + | Hypertension, unspecified type - Primary | + + | High cholesterol Pure hypercholesterolemia | + + | Restless legs Restless legs syndrome (RLS) | + + | Arthritis Arthropathy, unspecified, site unspecified | + + | Plantar fasciitis Plantar fascial fibromatosis | + + | Fibromyalgia Mylagia and myositis, unspecified | + + | Depression, unspecified depression type | + + | Chronic neck and back pain | + + | Insomnia, unspecified type | + + | Environmental allergies Allergic rhinitis, cause unspecified | + + | Anxiety Anxiety state, unspecified | + + | Fatigue, unspecified type | + + | Gastroenteritis Other and unspecified noninfectious gastroenteritis and colitis | + + | Hx: UTI (urinary tract infection) Personal history of urinary (tract) infection | + + | Abnormal finding in urine Other nonspecific finding on examination of urine | + + documented in this encounter
--- OUTSIDE RECORDS SUMMARY | ~2019-07-16 | XMS | Encounter Summary ---
Demographics + + + | Address | [address] | | | [place] [address] | + + + | Home Phone | | + + + | Preferred Language | Unknown | + + + | Marital Status | | + + + | Buddhism Affiliation | 1013 | + + + | Race | Unknown | + + + | Ethnic Group | Unknown | + + + Author + + + | Author | [facility] | | | and [place] | + + + | Organization | [facility] | | | [...] Team Providers + +------+ + | Care Director Acute Name | Role | Phone | + [...] Description | +--------+--------+ + + + | 06/23/ | Refill | [facility] | Martinez Rahman | Medication Refill | | 2019 | | [facility] | MD Tonio [address] | | | | | [address] | [place] | | | | | [place] | [address] | | | | | [address] | | | | | | [phone] | | | +--------+--------+ + + + [...] [place] | | | | | | [id number] | | | | | | | | +--------+---------+ + + + documented as of this encounter Visit Diagnoses Not on filedocumented in this encounter"
--- OUTSIDE RECORDS SUMMARY | ~2019-07-16 | XMS | Encounter Summary ---
Demographics + + + | Address | [address] | | | [place] [address] | + + + | Home Phone | | + + + | Preferred Language | Unknown | + + + | Marital Status | | + + + | Yarsanism Affiliation | 1013 | + + + | Race | Unknown | + + + | Ethnic Group | Unknown | + + + Author + + + | Author | [facility] | | | and [place] | + + + | Organization | [facility] | | [...] Team Providers + +------+ + | Care Plate Hanger Name | Role | Phone | + [...] + + | 06/23/ | Refill | [facility] | Martinez Rahman | Medication Refill | | 2019 | | [facility] | MD Tonio [address] | | | | | [address] | [place] | | | | | [place] | [address] | | | | | [address] | | | | | | [phone] | | | +--------+--------+ + + + [...] [place] | | | | | | [address] | | | | | | | | +--------+---------+ + + + documented as of this encounter Visit Diagnoses Not on filedocumented in this encounter"
--- OUTSIDE RECORDS SUMMARY | ~2019-07-16 | XMS | Encounter Summary ---
Demographics + + + | Address | [address] | | | [place] [address] | + + + | Home Phone | | + + + | Preferred Language | Unknown | + + + | Marital Status | | + + + | Moravian Affiliation | 1013 | + + + | Race | Unknown | + + + | Ethnic Group | Unknown | + + + Author + + + | Author | [facility] | | | and [place] | + + + | Organization | [facility] | | | [...] Team Providers + +------+ + | Care Tank Pumper Panelboard Name | Role | Phone | + +------+ + | Martinez Rahman MD | PCP | | + +------+ + Reason for Visit +--------+ + | Reason | Comments | +--------+ + | URI | | +--------+ + Encounter Details +--------+---------+ + + + | Date | Type | Department | Care Team | Description | +--------+---------+ + + + | 06/29/ | Office | [facility] | Martinez Rahman | Hypertension, | | 2019 | Visit | [facility] | MD Reginaldo [address] | unspecified type | | | | [address] | [place] | (Primary Dx); High | | | | [place] | [address] | cholesterol; | | | | [address] | | Restless legs; | | | | [phone] | | Arthritis; | | | | [...] | | | | | infection | +--------+---------+ + + + Social History [...] | 102 kg (224 lb 13.9 | 06/29/2019 1305 PDT | | | oz) | | + + + + | Height | 165.1 cm (5' 5") | 06/29/2019 1305 PDT | + + + + | Body Mass Index | 37.42 | 06/29/2019 1305 PDT | + + + + documented in this encounter Patient Instructions Patient Instructions Martinez Rahman MD - 06/29/2019 13:00 PDTFormatting of this note reginaldo verast be different from the original. Tips for Quitting Smoking (Cardiovascular) Quitting smoking is a gift to yourself, one of the best things you can do to keep your hear t disease from getting worse. Smoking reduces oxygen flow to your heart by speeding the buil dup of plaque and changing the health of your blood vessels. This increases your risk for he art attack, also known as acute myocardial infarction, or AMI. Quitting helps reduce smoking 's harmful effects.You may have tried to quit before, but don t give up. Try again. Many smokers try 4 or 5 times before they succeed. It is never too early to benefit from smoking cessation, especially if you already have chronic conditions such as high blood pressure an d high cholesterol that put you at increased risk for cardiovascular disease. You ll have the best chance of success if you join a stop-smoking group and have the supp ort of your doctor, family and friends. Line up help Ask for the support of your family and friends. Join a smoking cessation class, or ask your healthcare provider for a referral to a psyc hologist who specializes in helping people quit smoking. Ask your healthcare provider about nicotine replacement products and prescription medici sadia that can help you quit. Set a quit date Choose a date within the next 2 to 4 weeks. After picking a day, don it in bold letters on a calendar. Your quit list Ideas to stop smoking include: 1. Start by giving up cigarettes at the times you least need them. 2. Keeping a piece of fruit close by at the times you are most vulnerable to reach for a ci garette. 3. Using a nicotine replacement product instead of a cigarette. Write down a few more ideas. Set limits Limit where you can smoke. Pick one room or a porch, and smoke only in that place. Make smoking outdoors a house rule. Other smokers won t tempt you as much. Speak to smokers around you about your intent to stop smoking so they can show considera tion for you and limit their smoking around you. Hang a list of quit benefits in the spot where you smoke. Put one on the refrige rator and one on your car dashboard. For more information smokefree.gov/whix-rg-ry-expert National Cancer [place] Smoking Quitline: 880-33S-GSVP (116-907-4105) Date Last Reviewed: 12/07/201519990399-2495 [employer]. [address] [place] [address]. All righ ts reserved. This information is not intended as a substitute for professional medical care. Always follow your healthcare professional's instructions. documented in this encounter Progress Notes Martinez Rahman MD - 06/29/2019 1300 PDT Subjective: Pinky Robles is a 53 y.o. female patient of Martinez Rahman MD. Chief Complaint: URI HPI: Here with viral URI, hypertension, RLS, depression anxiety controlled, GERD, tobacco u se- must get off, GERD, fibromyalgia, anxiety, allergies, disorder, overweight, DJD, and oth ers per list. See list of medications tolerated well effective and will continue. Her ruel l restaurant infection for less than a week no bacterial symptoms or findings slightly chest y but no dyspnea needs better control of BP see levels so amlodipine 5 mg daily and increase lisinopril to 40 mg daily work on weight exercise salt restriction and stopping tobacco imp ortant. Has Chantix as necessary and tolerates. Labs and OV next about 07/26/2019 as expla ined otherwise appears reasonably up-to-date for last OV denies chest pain dyspnea edema or exercise intolerance habits. His medical history surgical history family history is reviewe d and advised in detail Allergies Allergen Reactions Altretamine Unknown Bupropion Other (See Comments) Seizures Pramipexole Unknown Tramadol Other (See Comments) Seizures Medications: Outpatient Encounter Medications as of 06/29/2019 Medication Sig Dispense Refill amLODIPine (NORVASC) 5 mg tablet Take 1 tablet by mouth Daily. 30 tablet 2 amoxicillin-clavulanate (AUGMENTIN) 875-125 mg per tablet TK 1 T PO Q 12 HOURS FOR 10 D AYS 0 carbidopa-levodopa (SINEMET) 25-250 mg per tablet Take 1 tablet by mouth Twice daily a s needed. 180 tablet 0 cetirizine (ZYRTEC) 10 mg tablet Take 1 tablet by mouth Daily. clonazePAM (KLONOPIN) 0.5 MG disintegrating tablet Take 1 tablet by mouth. DULoxetine (CYMBALTA) [address] capsule Take 2 capsules by mouth Daily. 180 capsule 0 lisinopril (PRINIVIL, ZESTRIL) 20 mg tablet TAKE 1 TABLET BY MOUTH ONCE DAILY 90 tablet 0 ondansetron (ZOFRAN ODT) 8 mg disintegrating tablet [...] tablet by mouth nightly. 90 tablet 0 varenicline (CHANTIX SHERLEY) 0.5 MG X 11 & 1 MG X 42 tablet Take 0.5mg by mouth for 3 days , then 0.5mg by mouth twice daily for 4 days, then 1 mg twice daily. See packaging. 53 tabl et 0 varenicline (CHANTIX) 1 MG tablet Take 1 tablet by mouth 2 times daily. After completio n starter sherley 60 tablet 1 No facility-administered encounter medications on file as of 06/29/2019. 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 Past Surgical History She has a past surgical history that includes Colonoscopy; External Lab: PAP Smear (2015); Dilation and curettage of uterus; DIAGNOSTIC DIGITAL MAMM BILAT (03/28/2018); Collateral lig ament repair (Right); Collateral ligament repair (Right); Anterior cruciate ligament repair (Right); and Total knee arthroplasty (Right, 05/2008). Family History: Her family history includes Arthritis [...] xcept as noted above previously and here in Objective: BP (!) 164/115 | Pulse 85 | Temp 37.2 C (98.9 F) (Temporal) | Resp 18 | Ht 1.651 m (5' 5") | Wt 102 kg (224 lb 13.9 oz) | SpO2 96% | BMI 37.42 kg/m Constitutional: Well developed, well nourished, no [...] no tenderness, no deformities. Back- no tenderness Integument: Well hydrated, no rash significant lesion Lymphatic: No lymphadenopathy noted Neurologic: Alert & oriented x 3, CN 2-12 normal, normal motor function, normal sensory fu nction, no focal deficits noted Psychiatric: Speech and behavior appropriate mood affect elective memory seem appropriate no evidence of self-harm ideation or thought of harm to others. Results for orders placed or performed in visit on 05/24/19 Lipid Panel Result Value Ref Range Triglycerides 242 (H) 30 - 150 mg/dL Cholesterol 265 (H) 150 - 200 mg/dL HDL 51 40 - 60 mg/dL Chol/HDL Ratio 5.2 LDL, Calculated 166 (H) <130 mg/dL Glucose, Fasting Result Value Ref Range Glucose, Fasting 123 (H) 74 - 110 mg/dL Creatinine Result Value Ref Range Creatinine 1.19 (H) 0.55 - 1.02 mg/dL eGFR if not 47 (L) >=60 mL/min/1.73m2 Urinalysis with Microscopic with Culture if Indicated Result Value Ref Range Color Yellow Light Yellow, Yellow, Straw Clarity Turbid (A) Clear pH, Urine 5.0 5.0 - 8.0 Specific [place] 1.031 (H) 1.001 - 1.030 Protein, Urine 30 mg/dL (A) Negative Blood, Urine Negative Negative Glucose, Urine Negative Negative Ketones, Urine Trace (A) Negative Bilirubin, Urine Negative Negative Nitrite, Urine Negative Negative Leukocyte Esterase, Urine Negative Negative Urobilinogen, Urine Negative 0.2 mg/dL, 1.0 mg/dL, Negative WBC UA 0-2 0 - 2 /HPF RBC UA 0-2 0 - 2 /HPF SQUAMOUS EPITHELIAL UA >100 (A) 0 - 2 /LPF BACTERIA UA Negative Negative /HPF MUCUS UA Present (A) Negative /LPF AMORPHOUS CRYSTALS Moderate (A) None Seen /HPF URINE COMMENT Urine Culture Not Indicated Assessment and Plans: Pinky was seen today for uri. Diagnoses and all orders for this visit: Hypertension, unspecified type High cholesterol Restless legs Arthritis Fibromyalgia Depression, unspecified depression type Insomnia, unspecified type Environmental allergies Anxiety Current nicotine use Viral respiratory infection Other orders - amLODIPine (NORVASC) 5 mg tablet; Take 1 tablet by mouth Daily. - varenicline (CHANTIX SHERLEY) 0.5 MG X 11 & 1 MG X 42 tablet; Take 0.5mg by mouth for 3 d ays, then 0.5mg by mouth twice daily for 4 days, then 1 mg twice daily. See packaging. - varenicline (CHANTIX) 1 MG tablet; Take 1 tablet by mouth 2 times daily. After comple tion starter sherley Requested Prescriptions Signed Prescriptions Disp Refills amLODIPine (NORVASC) 5 mg tablet 30 tablet 2 Sig: Take 1 tablet by mouth Daily. varenicline (CHANTIX SHERLEY) 0.5 MG X 11 & 1 MG X 42 tablet 53 tablet 0 Sig: Take 0.5mg by mouth for 3 days, then 0.5mg by mouth twice daily for 4 days, then 1 m g twice daily. See packaging. varenicline (CHANTIX) 1 MG tablet 60 tablet 1 Sig: Take 1 tablet by mouth 2 times daily. After completion starter sherley Viral resp infection should run course with conservative treatment as advised. Ok chantix as succeeded before. Rx o/w same and due labs and ov by next appt in 08/01. O/W reasonably t o date. [employer]tands and accepts continues to work on weight and other matters advised Return in about 3 months (around 09/29/2019). Care instructions and warning signs were discussed. Medications per orders. Side effects discussed. Labs and investigations per orders. This note is dictated using [employer] voice recognition software. This note was dictated but not proofread. It may contain some grammatical errors. documented in this encounter Plan of Treatment +--------+---------+ + + + | Date | Type | Specialty | Care Team | Description | +--------+---------+ + + + | 07/26/ | Office | Family Medicine | Martinez Rahman | | | 2019 | Visit | | MD Reginaldo [address] | | | | | | [place] | | | | | | [address] | | | | | | | | +--------+---------+ + + + documented as of this encounter Visit Diagnoses + + | Diagnosis | + + | Hypertension, unspecified type - Primary | + + | High cholesterol Pure hypercholesterolemia | + + | Restless legs Restless legs syndrome (RLS) | + + | Arthritis Arthropathy, unspecified, site unspecified | + + | Fibromyalgia Mylagia and myositis, unspecified | + + | Depression, unspecified depression type | + + | Insomnia, unspecified type | + + | Environmental allergies Allergic rhinitis, cause unspecified | + + | Anxiety Anxiety state, unspecified | + + | Current nicotine use | + + | Viral respiratory infection Unspecified viral infection, in conditions classified | | elsewhere and of unspecified site | + + documented in this encounter
--- OUTSIDE RECORDS SUMMARY | ~2019-07-16 | XMS | Encounter Summary ---
Demographics + + + | Address | [address] | | | [place] [address] | + + + | Home Phone | | + + + | Preferred Language | Unknown | + + + | Marital Status | | + + + | Sabianist Affiliation | 1013 | + + + | Race | Unknown | + + + | Ethnic Group | Unknown | + + + Author + + + | Author | [facility] | | | and [place] | + + + | Organization | [facility] | | [...] Team Providers + +------+ + | Care Warehouse Freight Handler Name | Role | Phone | + +------+ + | Martinez Rahman MD | PCP | | + +------+ + Encounter Details +--------+ + + + + | Date | Type | Department | Care Team | Description | +--------+ + + + + | 05/24/ | Abstract | [facility] | Martinez Rahman | | | 2019 | | [facility] | MD Tonio [address] | | | | | [address] | [place] | | | | | [place] | [address] | | | | | [address] | | | | | | [phone] | | | +--------+ + + + [...] [place] | | | | | | [id number] | | | | | | | [...]
--- OUTSIDE RECORDS SUMMARY | ~2019-07-16 | XMS | Encounter Summary ---
Demographics + + + | Address | [address] | | | [place] [address] | + + + | Home Phone | | + + + | Preferred Language | Unknown | + + + | Marital Status | | + + + | Orthodoxy Affiliation | 1013 | + + + | Race | Unknown | + + + | Ethnic Group | Unknown | + + + Author + + + | Author | [facility] | | | and [place] | + + + | Organization | [facility] | | [...] Team Providers + +------+ + | Care Self Rising Flour Mixer Name | Role | Phone | + [...] + + | 06/29/ | Office | [facility] | Martinez Rahman | Hypertension, | | 2019 | Visit | [facility] | MD Reginaldo [address] | unspecified type | | | | [address] | [place] | (Primary Dx); High | | | | [place] | [address] | cholesterol; | | | | [address] | | Restless legs; | | | | [phone] | | Arthritis; | | | | [...] on your car dashboard. For more information smokefree.gov/hbzo-jm-tq-expert National Cancer [place] Smoking Quitline: 524-63H-POYR (634-105-6003) Date Last Reviewed: 12/07/201519992279-[address] [employer] [place] [address]. All righ ts reserved. This information is [...] pH, Urine 5.0 5.0 - 8.0 Specific [place] 1.031 (H) 1.001 - 1.030 Protein, Urine [...] per orders. This note is dictated using [employer] voice recognition software. This note was dictated [...]
--- OUTSIDE RECORDS SUMMARY | ~2019-07-16 | XMS | Encounter Summary ---
Demographics + + + | Address | [address] | | | [place] [address] | + + + | Home Phone | | + + + | Preferred Language | Unknown | + + + | Marital Status | | + + + | Christianity Affiliation | 1013 | + + + | Race | Unknown | + + + | Ethnic Group | Unknown | + + + Author + + + | Author | [facility] | | | and [place] | + + + | Organization | [facility] | | | [...] Team Providers + +------+ + | Care Brake Reliner Name | Role | Phone | + +------+ + | Martinez Rahman MD | PCP | | + +------+ + Encounter Details +--------+ + + + + | Date | Type | Department | Care Team | Description | +--------+ + + + + | 05/25/ | Orders Only | [facility] | Martinez Rahman | Elevated serum | | 2019 | | MEDICINE [facility] | MD Tonio [address] | creatinine (Primary | | | | [address] | [place] | Dx); Hyperglycemia; | | | | [place] | [address] | Mixed hyperlipidemia | | | | [address] | | | | | | [phone] | | | +--------+ + + + [...] [place] | | | | | | [address] | | | | | | | | +--------+---------+ + + + + +--------+ + + | Name | Priori | Associated Diagnoses | Order Schedule | | | ty | | | + +--------+ + + | Lipid Panel | Routin | Mixed | 1 Occurrences | | | e | hyperlipidemia | starting 05/25/2019 | | | | | until 05/24/2020 | + +--------+ + + | Glucose, Fasting | Routin | Hyperglycemia | 1 Occurrences | | | e | | starting 05/25/2019 | | | | | until 05/24/2020 | + +--------+ + + | Creatinine | Routin | Elevated serum | 1 Occurrences | | | e | creatinine | starting 05/25/2019 | | | | | until 05/25/2020 | + +--------+ + + documented as of this encounter Visit Diagnoses + + | Diagnosis | + + | Elevated serum creatinine - Primary Other nonspecific findings on examination of | | blood | + + | Hyperglycemia Other abnormal glucose | + + | Mixed hyperlipidemia | + + documented in this encounter"
--- OUTSIDE RECORDS SUMMARY | ~2019-07-16 | XMS | Encounter Summary ---
Demographics + + + | Address | [address] | | | [place] [address] | + + + | Home Phone | | + + + | Preferred Language | Unknown | + + + | Marital Status | | + + + | Advent Affiliation | 1013 | + + + [...] Team Providers + +------+ + | Care Logistics Administrator Name | Role | Phone | + [...] Description | +--------+--------+ + + + | 07/11/ | Refill | [facility] | Martinez Rahman | Medication Refill | | 2019 | | [facility] | MD Tonio [address] | | | | | [address] | [place] | | | | | [place] | [address] | | | | | [address] | | | | | | [phone] | | | +--------+--------+ + + + [...] [place] | | | | | | [id number] | | | | | | | | +--------+---------+ + + + documented as of this encounter Visit Diagnoses Not on filedocumented in this encounter"
--- OUTSIDE RECORDS SUMMARY | ~2019-07-16 | XMS | Encounter Summary ---
Demographics + + + | Address | [address] | | | [place] [address] | + + + | Home Phone | | + + + | Preferred Language | Unknown | + + + | Marital Status | | + + + | Roman Catholic Affiliation | 1013 | + + + | Race | Unknown | + + + | Ethnic Group | Unknown | + + + Author + + + | Author | [facility] | | | and [place] | + + + | Organization | [facility] | | [...] Team Providers + +------+ + | Care Application Helper Name | Role | Phone | + [...] [address] | [place] | Dx); Hyperglycemia; | | | | [place] | [address] | Mixed hyperlipidemia | | | | [address] | | | | | | [phone] | | | +--------+ + + + [...] [place] | | | | | | [address] | | | | | | | [...]
--- OUTSIDE RECORDS SUMMARY | ~2019-07-16 | XMS | Encounter Summary ---
Demographics + + + | Address | [address] | | | [place] [address] | + + + | Home Phone | | + + + | Preferred Language | Unknown | + + + | Marital Status | | + + + | Judaism Affiliation | 1013 | + + + | Race | Unknown | + + + | Ethnic Group | Unknown | + + + Author + + + | Author | [facility] | | | and [place] | + + + | Organization | [facility] | | | [...] Team Providers + +------+ + | Care Networking Specialist Name | Role | Phone | + +------+ + | Martinez Rahman MD | PCP | | + +------+ + Reason for Visit + + + | Reason | Comments | + + + | Medication | | | Management | | + + + Encounter Details +--------+ + + + + | Date | Type | Department | Care Team | Description | +--------+ + + + + | 06/29/ | Telephone | [facility] | Martinez Rahman | Medication | | 2019 | | [facility] | MD Tonio [address] | Management | | | | [address] | [place] | | | | | [place] | [address] | | | | | [address] | | | | | | [phone] | | | +--------+ + + + [...] [place] | | | | | | [address] | | | | | | | | +--------+---------+ + + + documented as of this encounter Visit Diagnoses Not on filedocumented in this encounter"
--- OUTSIDE RECORDS SUMMARY | ~2019-07-16 | XMS | Encounter Summary ---
Demographics + + + | Address | [address] | | | [place] [address] | + + + | Home Phone | | + + + | Preferred Language | Unknown | + + + | Marital Status | | + + + | Spiritism Affiliation | 1013 | + + + | Race | Unknown | + + + | Ethnic Group | Unknown | + + + Author + + + | Author | [facility] | | | and [place] | + + + | Organization | [facility] | | [...] Providers + +------+ + | Care Director Of Provider Relations Name | Role | Phone | + +------+ + | Martinez Rahman MD | PCP | | + +------+ + Reason for Visit + + + | Reason | Comments | + + + | Medication Refill | | + + + | Medication Refill | | + + + Encounter Details +--------+--------+ + + + | Date | Type | Department | Care Team | Description | +--------+--------+ + + + | 06/30/ | Refill | [facility] | Martinez Rahman | Medication Refill; | | 2018 | | MEDICINE CENTER | MD Tonio [address] | Medication Refill | | | | [address] | [place] | | | | | [place] | [address] | | | | | [address] | | | | | | [phone] | | | +--------+--------+ + + + [...] [place] | | | | | | [id number] | | | | | | | | +--------+---------+ + + + documented as of this encounter Visit Diagnoses Not on filedocumented in this encounter"
--- OUTSIDE RECORDS SUMMARY | ~2019-07-16 | XMS | Encounter Summary ---
Demographics + + + | Address | [address] | | | [place] [address] | + + + | Home Phone | | + + + | Preferred Language | Unknown | + + + | Marital Status | | + + + | Adventist Affiliation | 1013 | + + + [...] Team Providers + +------+ + | Care Retail Service Technician Name | Role | Phone | + +------+ + | Martinez Rahman MD | PCP | | + +------+ + Reason for Visit + + + | Reason | Comments | + + + | Medication | | | Management | | + + + | Medication Refill | | + + + Encounter Details +--------+ + + + + | Date | Type | Department | Care Team | Description | +--------+ + + + + | 06/29/ | Telephone | [facility] | Martinez Rahman | Medication | | 2019 | | MEDICINE [place] | MD Tonio [address] | Management; | | | | [address] | [place] | Medication Refill | | | | [place] | [address] | | | | | [address] | | | | | | [phone] | | | +--------+ + + + [...] | 2019 | Visit | | MD [address] | | | | | | [place] | | | | | | [address] | | | | | | | | +--------+---------+ + + + documented as of this encounter Visit Diagnoses Not on filedocumented in this encounter"
--- OUTSIDE RECORDS SUMMARY | ~2019-07-16 | XMS | Encounter Summary ---
Demographics + + + | Address | [address] | | | [place] [address] | + + + | Home Phone | | + + + | Preferred Language | Unknown | + + + | Marital Status | | + + + | Restorationism Affiliation | 1013 | + + + | Race | Unknown | + + + | Ethnic Group | Unknown | + + + Author + + + | Author | [facility] | | | and [place] | + + + | Organization | [facility] | | | and [...] Team Providers + +------+ + | Care Staffing Program Manager Name | Role | Phone | [...] + + | 06/29/ | Telephone | [facility] | Martinez Rahman | Medication | | 2019 | | MEDICINE [place] | MD Tonio [address] | Management; | | | | [address] | [place] | Medication Refill | | | | [place] | [address] | | | | | [address] | | | | | | [phone] | | | +--------+ + + + [...]
--- OUTSIDE RECORDS SUMMARY | ~2019-07-16 | XMS | Encounter Summary ---
Demographics + + + | Address | [address] | | | [place] [address] | + + + | Home Phone | | + + + | Preferred Language | Unknown | + + + | Marital Status | | + + + | Temple Affiliation | 1013 | + + + | Race | Unknown | + + + | Ethnic Group | Unknown | + + + Author + + + | Author | [facility] | | | and [place] | + + + | Organization | [facility] | | | and [...] Team Providers + +------+ + | Care Lip Cutter And Scorer Name | Role | Phone | + [...] + + | 06/19/ | Refill | [facility] | Martinez Rahman | Medication Refill | | 2019 | | [facility] | MD Tonio [address] | | | | | [address] | [place] | | | | | [place] | [address] | | | | | [address] | | | | | | [phone] | | | +--------+--------+ + + + [...] CHERRY | | | | | | [id number] | | | | | | | | +--------+---------+ + + + documented as of this encounter Visit Diagnoses Not on filedocumented in this encounter"
--- OUTSIDE RECORDS SUMMARY | ~2019-07-16 | XMS | Encounter Summary ---
Demographics + + + | Address | [address] | | | [place] [address] | + + + | Home Phone | | + + + | Preferred Language | Unknown | + + + | Marital Status | | + + + | Scientology Affiliation | 1013 | + + + | Race | Unknown | + + + | Ethnic Group | Unknown | + + + Author + + + | Author | [facility] | | | and [place] | + + + | Organization | [facility] | | | [...] Team Providers + +------+ + | Care Supervisor Conditioning Yard Name | Role | Phone | + +------+ + | Martinez Rahman MD | PCP | | + +------+ + Reason for Visit +--------+ + | Reason | Comments | +--------+ + | Nausea | Patient was seen at ER on 05/05/19 at [facility]. We don't have | | | records. | +--------+ + Encounter Details +--------+---------+ + + + | Date | Type | Department | Care Team | Description | +--------+---------+ + + + | 04/18/ | Office | [facility] | Martinez Rahman | Hypertension, | | 2019 | Visit | [facility] | MD Tonio [address] | unspecified type | | | | [address] | [place] | (Primary Dx); High | | | | [place] | [address] | cholesterol; | | | | [address] | | Restless legs; | | | | [phone] | | Arthritis; Plantar | | | [...] time and pace a little each w [place]. Work up to 30 to 40 minutes [...] a graham sterol-lowering medicine. Date Last Reviewed: 02/11/201719994910-7168 [employer]. [address] [place] [address], [place] [address]. All righ ts reserved. This information is [...] time and pace a little each w [place]. Work up to 30 to 40 minutes [...] a graham sterol-lowering medicine. Date Last Reviewed: 02/11/201719991422-4325 [employer]. [address] [place] [address], [place] [address]. All righ ts reserved. This information is [...] Arthritis Foundation www.arthritis.org National Fibromyalgia Association www.fmaware.org [employer] Fibromyalgia Syndrome Association www.afsafund.org Date Last Reviewed: 02/11/201819993667-[address] [employer] [place] [address], [place] [address]. All righ ts reserved. This information is not intended as a substitute for professional medical care. Always follow your healthcare professional's instructions. documented in this encounter Progress Notes Martinez Rahman MD - 04/18/2019 1200 PDT Subjective: Pinky Robles is a 53 y.o. female patient of Martinez Rahman MD. Chief Complaint: Nausea (Patient was seen at ER on 05/05/19 at [facility]. We don't have r ecords. ) HPI: Patient here with multiple conditions and concerns including fibromyalgia, weight, ret ention, disturbance, lipidemia, RLS, plantar fasciitis, disturbance, anxiety, depression, al lergies, history of fatigue, DJD and others She was recently seen at [facility] ER in [facility] et for gastroenteritis appears to be resolving [...] okay at the same ti me at [facility]. Currently do mammograms every 2 years until [...] than or equal to 2yo subcutaneo us/IM [[id number]] Requested Prescriptions No prescriptions requested or ordered [...] per orders. This note is dictated using [employer] voice recognition software. This note was dictated [...] CHERRY | | | | | | [id number] | | | | | | | [...] - 1.030 | [facility] | | | [place] | | | [facility] | | [...] ST. | [address] | [place] | [phone] | | [facility] | | [address] | | | - LABORATORY | | [...]
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
--- OUTSIDE RECORDS SUMMARY | ~2019-07-16 | XMS | Encounter Summary ---
Demographics + + + | Address | [address] | | | [place] [address] | + + + | Home Phone | | + + + | Preferred Language | Unknown | + + + | Marital Status | | + + + | Anabaptism Affiliation | 1013 | + + + | Race | Unknown | + + + | Ethnic Group | Unknown | + + + Author + + + | Author | [facility] | | | and [place] | + + + | Organization | [facility] | | | [...] Team Providers + +------+ + | Care Wallpaper Hanger Name | Role | Phone | + +------+ + | Martinez Rahman MD | PCP | | + +------+ + Reason for Visit +---------+ + | Reason | Comments | +---------+ + | Results | | +---------+ + Encounter Details +--------+ + + + + | Date | Type | Department | Care Team | Description | +--------+ + + + + | 05/25/ | Telephone | [facility] | Martinez Rahman | Results | | 2019 | | MEDICINE [place] | MD Tonio [address] | | | | | [address] | [place], [place] | | | | | [place], [place] | [address] | | | | | [address] | | | | | | [phone] | | | +--------+ + + + [...] CHERRY | | | | | | [id number] | | | | | | | | +--------+---------+ + + + documented as of this encounter Visit Diagnoses Not on filedocumented in this encounter"
--- OUTSIDE RECORDS SUMMARY | ~2019-07-16 | XMS | Encounter Summary ---
Demographics + + + | Address | [address] | | | [place] [address] | + + + | Home Phone | | + + + | Preferred Language | Unknown | + + + | Marital Status | | + + + | Amish Affiliation | 1013 | + + + [...] Team Providers + +------+ + | Care Rail Gang Supervisor Name | Role | Phone | + +------+ + | Martinez Rahman MD | PCP | | + +------+ + Reason for Visit + + + | Reason | Comments | + + + | Mammogram | | + + + | Recall For Services | | | (DMST) | | + + + Encounter Details +--------+ + + + + | Date | Type | Department | Care Team | Description | +--------+ + + + + | 06/09/ | Patient | [facility] | Martinez Rahamn | PHST Preventative | | 2019 | Outreach | MEDICINE [place] | MD Tonio [address] | Screening, Breast | | | | [address] | [place] | Cancer Screening | | | | [place] | [address] | | | | | [address] | | | | | | [phone] | | | +--------+ + + + [...]
--- OUTSIDE RECORDS SUMMARY | ~2019-07-16 | XMS | Encounter Summary ---
Demographics + + + | Address | [address] | | | [place] [address] | + + + | Home Phone | | + + + | Preferred Language | Unknown | + + + | Marital Status | | + + + | Worship Affiliation | 1013 | + + + | Race | Unknown | + + + | Ethnic Group | Unknown | + + + Author + + + | Author | [facility] | | | and [place] | + + + | Organization | [facility] | | [...] Team Providers + +------+ + | Care Vaccine Specialist Name | Role | Phone | [...] + + | 06/29/ | Telephone | [facility] | Martinez Rahman | Medication | | 2019 | | [facility] | MD Tonio [address] | Management | | | | [address] | [place] | | | | | [place] | [address] | | | | | [address] | | | | | | [phone] | | | +--------+ + + + [...] CHERRY | | | | | | [id number] | | | | | | | | +--------+---------+ + + + documented as of this encounter Visit Diagnoses Not on filedocumented in this encounter"
--- OUTSIDE RECORDS SUMMARY | ~2019-07-16 | XMS | Encounter Summary ---
Demographics + + + | Address | [address] | | | [place] [address] | + + + | Home Phone | | + + + | Preferred Language | Unknown | + + + | Marital Status | | + + + | Zoroastrian Affiliation | 1013 | + + + | Race | Unknown | + + + | Ethnic Group | Unknown | + + + Author + + + | Author | [facility] | | | and [place] | + + + | Organization | [facility] | | | [...] Team Providers + +------+ + | Care Metal Organ Pipe Maker Name | Role | Phone | + +------+ + | Martinez Rahman MD | PCP | | + +------+ + Reason for Visit + + + | Reason | Comments | + + + | Release of | | | Information | | + + + Encounter Details +--------+ + + + + | Date | Type | Department | Care Team | Description | +--------+ + + + + | 04/18/ | Telephone | [facility] | Martinez Rahman | Release of | | 2019 | | [facility] | MD Tonio [address] | Information | | | | [address] | [place] | | | | | [place] | [address] | | | | | [address] | | | | | | [phone] | | | +--------+ + + + [...] [place] | | | | | | [address] | | | | | | | | +--------+---------+ + + + documented as of this encounter Visit Diagnoses Not on filedocumented in this encounter"
--- OUTSIDE RECORDS SUMMARY | ~2019-07-16 | XMS | Clinical Summary ---
Demographics + + + | Address | [address] | | | [place] [address] | + + + | Home Phone | | + + + | Preferred Language | Unknown | + + + | Marital Status | | + + + | Druze Affiliation | 1013 | + + + | Race | Unknown | + + + | Ethnic Group | Unknown | + + + Author + + + | Author | [facility] | | | and [place] | + + + | Organization | [facility] | | | [...] Team Providers + +------+ + | Care Manufacturing Specialist Name | Role | Phone | [...] | | 2018 | Visit | | SUPERVISOR SANDING | (Primary Dx); | | | | [...] [place] | | | | | | [address] | | | | | | | [...] + +--------+--------+ +--------+--------+--------+ | Knee Tib Insert [id number] | Implan | Right: | OSTEONICS - | | 04/09/ | [id number] | | Size 4 - [id number]: | t | Knee | PART OF [...] - 1.030 | [facility] | | | [place] | | | [facility] | | [...] [address] | [place] | [phone] | | [facility] | | [address] | | | - LABORATORY | | [...] + + | [facility] | [address] | [place] | [phone] | | [facility] | | [address] | | | [facility] | | [...] + + | [facility] | [address] | [place] | [phone] | | [facility] | | [address] | | | [facility] | | [...] | | GLOMERULAR FILTRATION | mL/min/1.73m2 | [facility] | | | LITHUANIAN | RATE,ESTIMATED mL/min | | MEDICAL | | | | /1.48b6Rtcm than 60 | | [facility] | | [...] + + + | [facility] | [address] | [place], [place] | [phone] | | [facility] | | [address] | | | [facility] | | [...] +--------+ +---------+--------+ | MEDICARE | MEDICA | [id number] | 09/13/19 | [phone] | | Medica [...] | | | | | | | [address] | + +--------+ +--------+ + + Advance Directives Patient has advance care planning documents on file. For more information, please contact:[facility] [place] [address]
--- OUTSIDE RECORDS SUMMARY | ~2019-07-16 | XMS | Encounter Summary ---
Demographics + + + | Address | [address] | | | [place] [address] | + + + | Home Phone | | + + + | Preferred Language | Unknown | + + + | Marital Status | | + + + | Church Affiliation | 1013 | + + + [...] Team Providers + +------+ + | Care Sight Mounter Name | Role | Phone | + [...] + | 06/09/ | Patient | [facility] | Martinez Rahman | PHST Preventative | | 2019 | Outreach | MEDICINE [place] | MD Tonio [address] | Screening, Breast | | | | [address] | [place] | Cancer Screening | | | | [place] | [address] | | | | | [address] | | | | | | [phone] | | | +--------+ + + + [...]
--- OUTSIDE RECORDS SUMMARY | ~2019-07-16 | XMS | Encounter Summary ---
Demographics + + + | Address | [address] | | | [place] [address] | + + + | Home Phone | | + + + | Preferred Language | Unknown | + + + | Marital Status | | + + + | Adventism Affiliation | 1013 | + + + | Race | Unknown | + + + | Ethnic Group | Unknown | + + + Author + + + | Author | [facility] | | | and [place] | + + + | Organization | [facility] | | | [...] Team Providers + +------+ + | Care Court Worker Name | Role | Phone | + [...] + + | 07/11/ | Refill | [facility] | Martinez Rahman | Medication Refill | | 2019 | | [facility] | MD Tonio [address] | | | | | [address] | [place] | | | | | [place] | [address] | | | | | [address] | | | | | | [phone] | | | +--------+--------+ + + + [...] [place] | | | | | | [address] | | | | | | | | +--------+---------+ + + + documented as of this encounter Visit Diagnoses Not on filedocumented in this encounter"
--- OUTSIDE RECORDS SUMMARY | ~2019-07-16 | XMS | Encounter Summary ---
Demographics + + + | Address | [address] | | | [place] [address] | + + + | Home Phone | | + + + | Preferred Language | Unknown | + + + | Marital Status | | + + + | Sikhism Affiliation | 1013 | + + + | Race | Unknown | + + + | Ethnic Group | Unknown | + + + Author + + + | Author | [facility] | | | and [place] | + + + | Organization | [facility] | | [...] Team Providers + +------+ + | Care Program Scheduler Name | Role | Phone | + [...] + + | 05/25/ | Telephone | [facility] | Martinez Rahman | Results | | 2019 | | MEDICINE MONA | MD Tonio [address] | | | | | [address] | [place], [place] | | | | | [place], [place] | [address] | | | | | [address] | | | | | | [phone] | | | +--------+ + + + [...] [place] | | | | | | [address] | | | | | | | | +--------+---------+ + + + documented as of this encounter Visit Diagnoses Not on filedocumented in this encounter"
--- OUTSIDE RECORDS SUMMARY | ~2019-07-16 | XMS | Encounter Summary ---
Demographics + + + | Address | [address] | | | [place] [address] | + + + | Home Phone | | + + + | Preferred Language | Unknown | + + + | Marital Status | | + + + | Confucianist Affiliation | 1013 | + + + | Race | Unknown | + + + | Ethnic Group | Unknown | + + + Author + + + | Author | [facility] | | | and [place] | + + + | Organization | [facility] | | | [...] Team Providers + +------+ + | Care Diamond Driller Name | Role | Phone | + +------+ + | Martinez Rahman MD | PCP | | + +------+ + Reason for Visit + + + | Reason | Comments | + + + | Sinus Problem | reports sinus infection X9 days ago. seen at [facility] urgent | | | care 1 week ago, Rx for Amoxicillin. reports no improvement. | + + + Encounter Details +--------+---------+ + + + | Date | Type | Department | Care Team | Description | +--------+---------+ + + + | 05/24/ | Office | [facility] | Leonardo Kuo, | Viral URI with cough | | 2019 | Visit | MEDICINE NEPHI | RESISTOR WINDER [address] | (Primary Dx); | | | | [address] | [place] | Current nicotine use | | | | [place] | [address] | | | | | [address] | | | | | | [phone] | | | +--------+---------+ + + + [...] loosen secretions in the nose and lungs. Ztqm-tjf-xvregip cold medicines will not shorten the length of time you re sick, but t hey may be helpful for the following symptoms: cough, sore throat, and nasal and sinus conge stion. If you take prescription medicines, ask your healthcare provider or pharmacist which cjnl-lor-oheszxk medicines are safe to use. (Note: Don't [...] with a muffled voice Date Last Reviewed: 02/11/201819999641-1127 [employer]. [address] [place] [address]. All righ ts reserved. This information is [...] sinus infection X9 days ago. seen at [facility] 1 week ago, Rx for Amoxicillin. reports no improvement. ) HPI Symptoms started 05/15/19 with facial pain ear pain. Cough started 05/18/19. She was seen 2018 at [facility] and diagnosed with bacterial sinus infection, right [...] has been changed since signin Order Audit Marion cetirizine (ZYRTEC) 10 mg tablet (Taking) Take 1 tablet by mouth Daily. clonazePAM (KLONOPIN) 0.5 MG disintegrating tablet (Taking) Take 1 tablet by mouth. DULoxetine (CYMBALTA) [address] capsule (Taking) Take 2 capsules by mouth Daily. Number of times this order has been changed since signin Order Audit Marion lisinopril (PRINIVIL, ZESTRIL) 20 mg tablet (Taking) TAKE 1 TABLET BY MOUTH DAILY Number of times this order has been changed since signin Order Audit Marion ondansetron (ZOFRAN ODT) 8 mg disintegrating tablet (Taking) DISSOLVE 1 TABLET IN MOUTH T HREE TIMES DAILY FOR NAUSEA VOMITING pregabalin (LYRICA) 100 mg capsule (Taking) 1 twice daily for 1 week then increase to 1-3 times daily. May further increase to twice daily if necessary Number of times this order has been changed since signin Order Audit Marion raNITIdine (ZANTAC) 150 mg tablet (Taking) Take 1 tablet by mouth See Admin Instructions. 1-2 tabs daily Number of times this order has been changed since signin Order Audit Marion risperiDONE (RISPERDAL) 0.5 mg tablet (Taking) TAKE 1 TABLET BY MOUTH ONCE DAILY Number of times this order has been changed since signin Order Audit Marion tiZANidine (ZANAFLEX) 4 mg tablet (Taking) Take 4 mg by mouth 4 times daily as needed. traZODone (DESYREL) 100 mg tablet (Taking) Take 1 tablet by mouth nightly. Number of times this order has been changed since signin Order Audit Marion Past Medical History She has a past [...] with cough Plan to obtain records from [facility] urgent care. No sign of focal bacterial [...] made to ensure accuracy; however, inadvertent computerized load tester errors may be pre sent. documented in [...] [place] | | | | | | [id number] | | | | | | | | +--------+---------+ + + + documented as of this encounter Visit Diagnoses + + | Diagnosis | + + | Viral URI with cough - Primary Acute upper respiratory infections of unspecified site | + + | Current nicotine use | + + documented in this encounter"
--- OUTSIDE RECORDS SUMMARY | ~2019-07-16 | XMS | Encounter Summary ---
Demographics + + + | Address | [address] | | | [place] [address] | + + + | Home Phone | | + + + | Preferred Language | Unknown | + + + | Marital Status | | + + + | Judaism Affiliation | 1013 | + + + | Race | Unknown | + + + | Ethnic Group | Unknown | + + + Author + + + | Author | [facility] | | | and [place] | + + + | Organization | [facility] | | | [...] Team Providers + +------+ + | Care Shoe Stitcher Odd Name | Role | Phone | + +------+ + | Martinez Rahman MD | PCP | | + +------+ + Encounter Details +--------+ + + + + | Date | Type | Department | Care Team | Description | +--------+ + + + + | 04/25/ | Abstract | [facility] | Martinez Rahman | | | 2019 | | [facility] | MD Tonio [address] | | | | | [address] | [address]VE [place] | | | | | [place] | [address] | | | | | [address] | | | | | | [phone] | | | +--------+ + + + [...] [place]ERR[place] | | | | | | 182332 | | | | | | | [...] + + | REFERENCE LAB | [address] [facility] | [place] [address] | [phone] | | [facility] | | | | [...] + | REFERENCE LAB | [address] | [place] [address] | [phone] | | [facility] | | | | [...] - 1.03 | REFERENCE | | | [place], | | | LAB | | | [...] + + | REFERENCE LAB | [address] [facility] | [place] [address] | [phone] | | [facility] | | | | [...] + + + | REFERENCE LAB | [facility] | [place] [address] | [phone] | | [facility] | | | | [...] + + | REFERENCE LAB | [address] [facility] | [place] [address] | [phone] | | [facility] | | | | [...] + + | REFERENCE LAB | [address] [facility] | [place] [address] | [phone] | | [facility] | | | | [...] + | REFERENCE LAB | [address] | [place] [address] | [phone] | | [facility] | | | | [...] + + + | REFERENCE LAB | [address] [place] [address] | [place] [address] | [phone] | | [facility] | | | | [...] + + + | REFERENCE LAB | [facility] [facility] | [place] [address] | [phone] | | [facility] | | | | [...] + + + | REFERENCE LAB | [address] [facility] | [place] [address] | [phone] | | [facility] | | | | [...] | [address] | [place] [address] | [phone] | | [facility] | | | | [...] + + + | REFERENCE LAB | [facility] [facility] | [place] [address] | [phone] | | [facility] | | | | [...] + | REFERENCE LAB | [address] | [place] [address] | [phone] | | [facility] | | | | [...] + + | REFERENCE LAB | [address] [facility] | [place] [id number] | [phone] | | [facility] | | | | [...] + + | REFERENCE LAB | [address] [facility] | [place] [address] | [phone] | | [facility] | | | | [...] + + + | REFERENCE LAB | [address] [facility] | [place] [address] | [phone] | | [facility] | | | | [...] + + | REFERENCE LAB | [address] [facility] | [place] [address] | [phone] | | [facility] | | | | [...] + + + | REFERENCE LAB | [address] [facility] | [place] [address] | [phone] | | [facility] | | | | [...] + + + | REFERENCE LAB | [address] [facility] | [place] [address] | [phone] | | [facility] | | | | [...] + + | REFERENCE LAB | [address] [facility] | [place] [address] | [phone] | | [facility] | | | | [...] + + | REFERENCE LAB | [address] [facility] | [place] [address] | [phone] | | [facility] | | | | [...] + + + | REFERENCE LAB | [address] [place] [address] | [place] [address] | [phone] | | [facility] | | | | [...] + + | REFERENCE LAB | [address] [facility] | [place] [address] | [phone] | | [facility] | | | | + + + + + documented in this encounter Visit Diagnoses Not on filedocumented in this encounter"
--- OUTSIDE RECORDS SUMMARY | ~2019-07-16 | XMS | Encounter Summary ---
Demographics + + + | Address | [address] | | | [place] [address] | + + + | Home Phone | | + + + | Preferred Language | Unknown | + + + | Marital Status | | + + + | Mandaeism Affiliation | 1013 | + + + | Race | Unknown | + + + | Ethnic Group | Unknown | + + + Author + + + | Author | [facility] | | | and [place] | + + + | Organization | [facility] | | [...] Team Providers + +------+ + | Care Burlap Roll Coverer Name | Role | Phone | + [...] + + | 06/30/ | Refill | [facility] | Martinez Rahman | Medication Refill; | | 2018 | | MEDICINE [place] | MD Tonio [address] | Medication Refill | | | | [address] | [place] | | | | | [place] | [address] | | | | | [address] | | | | | | [phone] | | | +--------+--------+ + + + [...] [place]Y | | | | | | [address] | | | | | | | | +--------+---------+ + + + documented as of this encounter Visit Diagnoses Not on filedocumented in this encounter"
--- OUTSIDE RECORDS SUMMARY | ~2019-07-16 | XMS | Encounter Summary ---
Demographics + + + | Address | [address] | | | [place] [address] | + + + | Home Phone | | + + + | Preferred Language | Unknown | + + + | Marital Status | | + + + | Moravian Affiliation | 1013 | + + + | Race | Unknown | + + + | Ethnic Group | Unknown | + + + Author + + + | Author | [facility] | | | and [place] | + + + | Organization | [facility] | | | [...] Team Providers + +------+ + | Care Yacht Master Name | Role | Phone | + [...] + + | 04/18/ | Telephone | [facility] | Martinez Rahman | Release of | | 2019 | | [facility] | MD Tonio [address] | Information | | | | [address] | [place] | | | | | [place] | [address] | | | | | [address] | | | | | | [phone] | | | +--------+ + + + [...] [place]ERR[place] | | | | | | [address] | | | | | | | | +--------+---------+ + + + documented as of this encounter Visit Diagnoses Not on filedocumented in this encounter"
== END ==
LOC: ED 19:24
DX: Z53.21 Procedure and treatment not carried out due to patient leaving prior to being seen by health care provider (principal)

== ENCOUNTER 2020-09-30 12:10 | Emergency (ER) | payer MEDICARE ==
[~2020-09-30] VITALS: Ht 165.1 cm; Wt 85.7 kg
--- OUTSIDE RECORDS SUMMARY | 2020-09-30 12:12 | XMS ---
PreManage Notification: CARMEN ROBLES Security Environmental Permitting Specialist Events 1 event(s) in the past 18 months Most recent security events: Elopement at [facility] 07/16/2019 19:24 - Other Details: PATIENT LWBS. CRITERIA MET - Group Notification CARE PROVIDERS ROSAS SILVESTRE Nurse Practitioner: Current PHONE: [phone] Lenard has no Care Guidelines for this patient. [place] VISIT COUNT (12 MO.) 1 [facility]. TOTAL 1 NOTE: Visits indicate total known visits. ED/UCC VISIT TRACKING (12 MO.) 09/30/2020 12:10 [facility] [place] TYPE: Emergency COMPLAINT: - DIZZINESS, HEAD PAIN INPATIENT VISIT TRACKING (12 MO.) No inpatient visits to display in this time frame [id number]
[2020-09-30] MEDS ORDERED: ATORVASTATIN CA10 MG PO (12:34)
--- NOTE | 2020-09-30 16:26 | EKG ---
[facility] [address] [facility] [place] [address] Signed Normal sinus rhythm Normal ECG When compared with ECG of 14-APR-2019 02:46, Nonspecific T wave abnormality no longer evident in Anterolateral leads Confirmed by DIVINE ROBLEDO MD ([id number]) on 09/30/2020 4:26:26 PM Electronically Signed By: DIVINE ROBLEDO MD 09/30/20 1626 PATIENT NAME: CARMEN ROBLES OLEG Electrocardiogram DATE OF : 61 PHYSICIAN: DIVINE ROBLEDO MD REPORT #: [id number] REPORT IS CONFIDENTIAL AND NOT TO BE RELEASED WITHOUT AUTHORIZATION
== END 2020-09-30 15:49 | disposition home or self-care (01) ==
LOC: ED 12:10
DX: H81.12 Benign paroxysmal vertigo, left ear (principal); I10 Essential (primary) hypertension; F17.200 Nicotine dependence, unspecified, uncomplicated; Z88.8 Allergy status to other drugs, medicaments and biological substances; Z88.5 Allergy status to narcotic agent; Z79.899 Other long term (current) drug therapy
CPT/HCPCS: 70450; 80053; 83735; 84484; 85025; 93005; 93010; 99284-25

== ENCOUNTER 2020-11-26 23:22 | Emergency (ER) | payer MEDICARE ==
[~2020-11-26] VITALS: Ht 165.1 cm; Wt 86.6 kg
[~2020-11-26 23:22] MED LIST changes: +ATORVASTATIN CA10 MG PO
--- OUTSIDE RECORDS SUMMARY | 2020-11-26 23:24 | XMS ---
PreManage Notification: CARMEN ROBLES Security Logging Rafter Laborer Events 1 event(s) in the past 18 months Most recent security events: Elopement at [facility] 07/16/2019 19:24 - Other Details: PATIENT LWBS. CRITERIA MET - Group Notification CARE PROVIDERS ROSAS SILVESTRE Nurse Practitioner: Current PHONE: [phone] Lenard has no Care Guidelines for this patient. E.Yarelis. VISIT COUNT (12 MO.) 2 [facility]. TOTAL 2 NOTE: Visits indicate total known visits. ED/UCC VISIT TRACKING (12 MO.) 11/26/2020 23:22 [facility] [place] TYPE: Emergency COMPLAINT: - RT SIDE NECK AND SHOULDER PAIN 09/30/2020 12:10 [facility] [place] TYPE: Emergency COMPLAINT: - DIZZINESS, HEAD PAIN DIAGNOSES: - Allergy status to narcotic agent - Other [facility] ([facility] drug therapy - Dizziness and giddiness - Benign paroxysmal vertigo, left ear - Nicotine dependence, unspecified, uncomplicated - Allergy status to other drugs, medicaments and biological substances - Essential (primary) hypertension INPATIENT VISIT TRACKING (12 MO.) No inpatient visits to display in this time frame [id number]
[2020-11-26] MEDS ORDERED: CYCLOBENZAPRINE10 MG PO (23:51)
== END 2020-11-27 00:10 | disposition home or self-care (01) ==
LOC: ED 23:22
DX: M62.830 Muscle spasm of back (principal); I10 Essential (primary) hypertension; F17.200 Nicotine dependence, unspecified, uncomplicated; Z88.8 Allergy status to other drugs, medicaments and biological substances; Z88.5 Allergy status to narcotic agent; Z79.899 Other long term (current) drug therapy
CPT/HCPCS: 99283

== ENCOUNTER 2021-02-22 11:43 | Emergency (ER) | payer MEDICARE ==
[~2021-02-22] VITALS: Ht 165.1 cm; Wt 86.6 kg
[~2021-02-22 11:43] MED LIST changes: +CYCLOBENZAPRINE10 MG PO
--- OUTSIDE RECORDS SUMMARY | 2021-02-22 11:46 | XMS ---
PreManage Notification: CARMEN ROBLES Security Ship Cleaner Events No recent Security Events currently on file CRITERIA MET - Group Notification CARE PROVIDERS ROSAS SILVESTRE Nurse Practitioner: Current PHONE: [phone] Lenard has no Care Guidelines for this patient. [place] VISIT COUNT (12 MO.) 3 [facility] TOTAL 3 NOTE: Visits indicate total known visits. ED/UCC VISIT TRACKING (12 MO.) 02/22/2021 11:45 [facility] [place] TYPE: Emergency COMPLAINT: - ANXIETY, CHEST TIGHTENS SINCE LAST 11/26/2020 23:22 [facility] [place] TYPE: Emergency COMPLAINT: - RT SIDE NECK AND SHOULDER PAIN DIAGNOSES: - Cervicalgia - Other custodial (current) drug therapy - Allergy status to narcotic agent - Muscle spasm of back - Allergy status to other drugs, medicaments and biological substances - Nicotine dependence, unspecified, uncomplicated - Essential (primary) hypertension 09/30/2020 12:10 [facility] [place] TYPE: Emergency COMPLAINT: - DIZZINESS, HEAD PAIN DIAGNOSES: - Allergy status to narcotic agent - 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
[2021-02-22] MEDS ORDERED: AMLODIPINE BESYL5 MG PO (12:07)
--- NOTE | 2021-02-22 12:50 | EKG ---
[facility] [address] [facility] [place], [place] [address] Signed Normal sinus rhythm Normal ECG When compared with ECG of 30-SEP-2020 12:44, No significant change was found Confirmed by ANTONIO MANSFIELD DO ([id number]) on 02/22/2021 12:50:41 PM Electronically Signed By: ANTONIO MANSFIELD DO 02/22/21 1250 PATIENT NAME: CARMEN ROBLES Electrocardiogram DATE OF : 61 PHYSICIAN: ANTONIO MANSFIELD DO REPORT #: [id number] REPORT IS CONFIDENTIAL AND NOT TO BE RELEASED WITHOUT AUTHORIZATION
[2021-02-22] MEDS ORDERED: HYDROXYZINE HCL25 MG PO (13:40)
[2021-02-22] MEDS ORDERED: ATIVAN1 MG PO (13:40)
== END 2021-02-22 13:50 | disposition home or self-care (01) ==
LOC: ED 11:43
DX: F41.9 Anxiety disorder, unspecified (principal); F43.0 Acute stress reaction; E05.90 Thyrotoxicosis, unspecified without thyrotoxic crisis or storm; I10 Essential (primary) hypertension; F17.200 Nicotine dependence, unspecified, uncomplicated; Z88.8 Allergy status to other drugs, medicaments and biological substances; Z88.5 Allergy status to narcotic agent; Z79.899 Other long term (current) drug therapy
CPT/HCPCS: 80053; 84439; 84443; 84484; 85025; 93005; 93010; 99285-25

== ENCOUNTER 2021-03-03 17:50 | Emergency (ER) | payer MEDICARE ==
[~2021-03-03] VITALS: Ht 165.1 cm; Wt 86.6 kg
[~2021-03-03 17:50] MED LIST changes: +AMLODIPINE BESYL5 MG PO; +ATIVAN1 MG PO; +HYDROXYZINE HCL25 MG PO
--- OUTSIDE RECORDS SUMMARY | 2021-03-03 17:54 | XMS ---
PreManage Notification: CARMEN ROBLES Security Financial Reporting Advisor Events No recent Security Events currently on file CRITERIA MET - Group Notification - [facility] - 2 Visits in 30 Days CARE PROVIDERS ROSAS SILVESTRE Nurse Practitioner: Family Current PHONE: [phone] Lenard has no Care Guidelines for this patient. [place] VISIT COUNT (12 MO.) 4 [facility] TOTAL 4 NOTE: Visits indicate total known visits. ED/UCC VISIT TRACKING (12 MO.) 03/03/2021 17:51 [facility] [place] TYPE: Emergency COMPLAINT: - DIFFICULTY BREATHING 02/22/2021 11:45 [facility] [place] TYPE: Emergency COMPLAINT: - ANXIETY, CHEST TIGHTENS SINCE LAST WEDNESDAY DIAGNOSES: - Anxiety disorder, unspecified - Nicotine dependence, unspecified, uncomplicated - Allergy status to other drugs, medicaments and biological substances - Allergy status to narcotic agent - Other chest pain - Essential (primary) hypertension - Thyrotoxicosis, unspecified without thyrotoxic crisis or storm - Other [facility] (current) drug therapy - Acute stress reaction 11/26/2020 23:22 [facility] [place] TYPE: Emergency COMPLAINT: - RT SIDE NECK AND SHOULDER PAIN DIAGNOSES: - Cervicalgia - Other [facility] (current) drug therapy - Allergy status to narcotic agent - Muscle spasm of back - Allergy status to other drugs, medicaments and biological substances - Nicotine dependence, unspecified, uncomplicated - Essential (primary) hypertension 09/30/2020 12:[address] [facility] [place] TYPE: Emergency COMPLAINT: - DIZZINESS, HEAD PAIN DIAGNOSES: - Allergy status to narcotic agent - Other [facility] (current) drug therapy - Dizziness and giddiness - Benign paroxysmal vertigo, left ear - Nicotine dependence, unspecified, uncomplicated - Allergy status to other drugs, medicaments and biological substances - Essential (primary) hypertension INPATIENT VISIT TRACKING (12 MO.) No inpatient visits to display in this time frame [id number]
--- NOTE | 2021-03-04 11:25 | EKG ---
[facility] [address] [place] [address] Signed Normal sinus rhythm Possible Left atrial enlargement Borderline ECG When compared with ECG of 22-FEB-2021 11:51, No significant change was found Confirmed by CAROL ANN PALMA MD ([id number]) on 03/04/2021 11:25:21 AM Electronically Signed By: CAROL ANN PALMA MD 03/04/21 1125 PATIENT NAME: CARMEN ROBLES Electrocardiogram DATE OF : 61 PHYSICIAN: CAROL ANN PALMA MD REPORT #: [id number] REPORT IS CONFIDENTIAL AND NOT TO BE RELEASED WITHOUT AUTHORIZATION
== END 2021-03-03 20:19 | disposition home or self-care (01) ==
LOC: ED 17:50
DX: R07.89 Other chest pain (principal); I10 Essential (primary) hypertension; F17.200 Nicotine dependence, unspecified, uncomplicated; Z88.8 Allergy status to other drugs, medicaments and biological substances; Z88.5 Allergy status to narcotic agent; Z79.899 Other long term (current) drug therapy
CPT/HCPCS: 71045; 80053; 83735; 84484; 85025; 85379; 93005; 93010; 96374; 99285-25; J1885; J7030

== ENCOUNTER 2021-10-01 13:32 | Emergency (ER) | payer MEDICARE ==
[~2021-10-01] VITALS: Ht 165.1 cm; Wt 90.7 kg
--- OUTSIDE RECORDS SUMMARY | 2021-10-01 13:40 | XMS ---
PreManage Notification: CARMEN ROBLES Security Laboratory Apparatus Glass Grinder Events No recent Security Events currently on file CRITERIA MET - Group Notification CARE PROVIDERS ROSAS SILVESTRE Nurse Practitioner: Family Current PHONE: Unknown Lenard has no Care Guidelines for this patient. Care History Medical/Surgical 03/04/2021 [facility] - [facility] CONTACTED PCP OFFICE [phone]- PATIENT HAS AN APT 03/05/21 FOR A FOLLOW UP APT. - PROVIDER OFFICE HAS NOT RECEIVED THE LAST 2 ED VISIT RECORDS-REQUESTED THEY BE FAXED TO [phone]. - W SENT CLINICALS PER REQUEST. EJeni VISIT COUNT (12 MO.) 4 [facility] TOTAL 4 NOTE: Visits indicate total known visits. ED/UCC VISIT TRACKING (12 MO.) 10/01/2021 13:33 [facility] [place] TYPE: Emergency COMPLAINT: - POSS STROKE 03/03/2021 17:51 [facility] [place] TYPE: Emergency COMPLAINT: - DIFFICULTY BREATHING DIAGNOSES: - Allergy status to narcotic agent - Nicotine dependence, unspecified, uncomplicated - Essential (primary) hypertension - Allergy status to other drugs, medicaments and biological substances - Other chest pain - Other fpc (current) drug therapy 02/22/2021 11:45 [facility] [place] TYPE: Emergency COMPLAINT: - ANXIETY, CHEST TIGHTENS SINCE LAST WEDNESDAY DIAGNOSES: - Anxiety disorder, unspecified - Nicotine dependence, unspecified, uncomplicated - Allergy status to other drugs, medicaments and biological substances - Allergy status to narcotic agent - Other chest pain - Essential (primary) hypertension - Thyrotoxicosis, unspecified without thyrotoxic crisis or storm - Other fpc (current) drug therapy - Acute stress reaction 11/26/2020 23:22 [facility] [place] TYPE: Emergency COMPLAINT: - RT SIDE NECK AND SHOULDER PAIN DIAGNOSES: - Cervicalgia - Other fpc (current) drug therapy - Allergy status to narcotic agent - Muscle spasm of back - Allergy status to other drugs, medicaments and biological substances - Nicotine dependence, unspecified, uncomplicated - Essential (primary) hypertension INPATIENT VISIT TRACKING (12 MO.) No inpatient visits to display in this time frame [email or web address]
[2021-10-01] MEDS ORDERED: SPIRONOLACTONE25 MG PO (14:07)
--- NOTE | 2021-10-02 11:27 | EKG ---
[facility] [address] [place] [address] Signed Normal sinus rhythm Low voltage QRS Borderline ECG When compared with ECG of 03-MAR-2021 17:58, No significant change was found Confirmed by CAROL ANN PALMA MD ([id number]) on 10/02/2021 11:27:05 AM Electronically Signed By: CAROL ANN PALMA MD 10/02/21 1127 PATIENT NAME: CARMEN ROBLES OLEG Electrocardiogram DATE OF : 61 PHYSICIAN: CAROL ANN PALMA MD REPORT #: [id number] REPORT IS CONFIDENTIAL AND NOT TO BE RELEASED WITHOUT AUTHORIZATION
== END 2021-10-01 16:26 | disposition short-term general hospital (02) ==
LOC: ED 13:32
DX: I63.9 Cerebral infarction, unspecified (principal); R29.701 NIHSS score 1; I10 Essential (primary) hypertension; F17.200 Nicotine dependence, unspecified, uncomplicated; Z88.8 Allergy status to other drugs, medicaments and biological substances; Z88.5 Allergy status to narcotic agent; Z79.899 Other long term (current) drug therapy; Z20.822 Contact with and (suspected) exposure to COVID-19
CPT/HCPCS: 70450; 70496; 70498; 71045; 80053; 84484; 85025; 85610; 85730; 93005; 93010; 99285-25; J7030; Q3014; Q9967; U0003

== ENCOUNTER 2021-10-15 17:22 | Emergency (ER) | payer MEDICARE ==
[~2021-10-15] VITALS: Ht 165.1 cm; Wt 90.7 kg
[~2021-10-15 17:22] MED LIST changes: +SPIRONOLACTONE25 MG PO
--- OUTSIDE RECORDS SUMMARY | 2021-10-15 17:24 | XMS ---
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 Care History Medical/Surgical 03/04/2021 [facility] - [facility] CONTACTED PCP OFFICE [phone]- PATIENT HAS AN APT 03/05/21 FOR A FOLLOW UP APT. - PROVIDER OFFICE HAS NOT RECEIVED THE LAST 2 ED VISIT RECORDS-REQUESTED THEY BE FAXED TO [phone]. - W SENT CLINICALS PER REQUEST. E.D. VISIT COUNT (12 MO.) 5 [facility] TOTAL 5 NOTE: Visits indicate total known visits. ED/UCC VISIT TRACKING (12 MO.) 10/15/2021 17:22 [facility] [place] TYPE: Emergency COMPLAINT: - HEADACHE 10/01/2021 13:33 [facility] [place] TYPE: Emergency COMPLAINT: - POSS STROKE DIAGNOSES: - Other intermediate (current) drug therapy - Nicotine dependence, unspecified, uncomplicated - NIHSS score 1 - Cerebral infarction, unspecified - Allergy status to other drugs, medicaments and biological substances - Allergy status to narcotic agent - Essential (primary) hypertension - Anesthesia of skin 03/03/2021 17:51 [facility] Vivian Liz Bliss [place] TYPE: Emergency COMPLAINT: - DIFFICULTY BREATHING DIAGNOSES: - Allergy status to narcotic agent - Nicotine dependence, unspecified, uncomplicated - Essential (primary) hypertension - Allergy status to other drugs, medicaments and biological substances - Other chest pain - Other rn long term care (current) drug therapy 02/22/2021 11:45 [facility] [place] TYPE: Emergency COMPLAINT: - ANXIETY, CHEST TIGHTENS SINCE LAST WEDNESDAY DIAGNOSES: - Anxiety disorder, unspecified - Nicotine dependence, unspecified, uncomplicated - Allergy status to other drugs, medicaments and biological substances - Allergy status to narcotic agent - Other chest pain - Essential (primary) hypertension - Thyrotoxicosis, unspecified without thyrotoxic crisis or storm - Other intermediate (current) drug therapy - Acute stress reaction 11/26/2020 23:22 [facility] [place] TYPE: Emergency COMPLAINT: - RT SIDE NECK AND SHOULDER PAIN DIAGNOSES: - Cervicalgia - Other intermediate (current) drug therapy - Allergy status to narcotic agent - Muscle spasm of back - Allergy status to other drugs, medicaments and biological substances - Nicotine dependence, unspecified, uncomplicated - Essential (primary) hypertension INPATIENT VISIT TRACKING (12 MO.) 10/01/2021 18:50 [facility] TYPE: Neurology DIAGNOSES: - Tobacco use - Transient cerebral ischemic attack, unspecified - Hyperlipidemia, unspecified - Fibromyalgia - Cerebrovascular disease, unspecified - Essential (primary) hypertension - Anesthesia of skin - Cerebral atherosclerosis - Occlusion and stenosis of right carotid artery - Cerebral infarction, unspecified [email or web address]
[2021-10-15] MEDS ORDERED: ATORVASTATIN CA80 MG PO (18:37)
[2021-10-15] MEDS ORDERED: LORAZEPAM0.5 MG PO (18:38)
[2021-10-15] MEDS ORDERED: CLOPIDOGREL75 MG PO (18:39)
[2021-10-15] MEDS ORDERED: ASPIRIN81 MG PO (18:39)
--- NOTE | 2021-10-16 18:52 | EKG ---
[facility] [address] [facility] [facility] [place], [place] [address] Signed Normal sinus rhythm Normal ECG When compared with ECG of 01-OCT-2021 14:07, No significant change was found Confirmed by CAROL ANN PALMA MD ([id number]) on 10/16/2021 6:52:17 PM Electronically Signed By: CAROL ANN PALMA MD 10/16/211851 PATIENT NAME: CARMEN ROBLES Electrocardiogram DATE OF : 61 PHYSICIAN: CAROL ANN PALMA MD REPORT #: [id number] REPORT IS CONFIDENTIAL AND NOT TO BE RELEASED WITHOUT AUTHORIZATION
== END 2021-10-15 20:55 | disposition home or self-care (01) ==
LOC: ED 17:22
DX: R51.9 Headache, unspecified (principal); I69.30 Unspecified sequelae of cerebral infarction; I10 Essential (primary) hypertension; F17.200 Nicotine dependence, unspecified, uncomplicated; Z88.8 Allergy status to other drugs, medicaments and biological substances; Z88.5 Allergy status to narcotic agent; Z79.899 Other long term (current) drug therapy; Z79.82 Long term (current) use of aspirin
CPT/HCPCS: 70450; 71045; 85025; 85610; 85730; 93005; 93010; 99284-25

== ENCOUNTER 2021-10-26 13:45 | Emergency (ER) | payer MEDICARE ==
[~2021-10-26] VITALS: Ht 165.1 cm; Wt 90.7 kg
[~2021-10-26 13:45] MED LIST changes: +ASPIRIN81 MG PO; +ATORVASTATIN CA80 MG PO; +CLOPIDOGREL75 MG PO; +LORAZEPAM0.5 MG PO
--- OUTSIDE RECORDS SUMMARY | 2021-10-26 13:48 | XMS ---
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 Care History Medical/Surgical 03/04/2021 [facility] CONTACTED PCP OFFICE [phone]- PATIENT HAS AN APT 03/05/21 FOR A FOLLOW UP APT. - PROVIDER OFFICE HAS NOT RECEIVED THE LAST 2 ED VISIT RECORDS-REQUESTED THEY BE FAXED TO [phone]. - W SENT CLINICALS PER REQUEST. E.D. VISIT COUNT (12 MO.) 6 [facility] TOTAL 6 NOTE: Visits indicate total known visits. ED/UCC VISIT TRACKING (12 MO.) 10/26/2021 13:45 [facility] [place] TYPE: Emergency COMPLAINT: - STROKE SYMPTOMS 10/15/2021 17:22 [facility] [place] TYPE: Emergency COMPLAINT: - HEADACHE DIAGNOSES: - Headache, unspecified - nursing home (current) use of aspirin - Allergy status to narcotic agent - Nicotine dependence, unspecified, uncomplicated - Unspecified sequelae of cerebral infarction - Allergy status to other drugs, medicaments and biological substances - Essential (primary) hypertension - Other nursing home (current) drug therapy 10/01/2021 13:33 [facility] [place] TYPE: Emergency COMPLAINT: - POSS STROKE DIAGNOSES: - 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 - Nicotine dependence, unspecified, uncomplicated - NIHSS score 1 - Cerebral infarction, unspecified - Allergy status to other drugs, medicaments and biological substances - Allergy status to narcotic agent - Essential (primary) hypertension - Anesthesia of skin 03/03/2021 17:51 [facility] [place] TYPE: Emergency COMPLAINT: - DIFFICULTY BREATHING DIAGNOSES: - Allergy status to narcotic agent - Nicotine dependence, unspecified, uncomplicated - Essential (primary) hypertension - Allergy status to other drugs, medicaments and biological substances - Other chest pain - 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 02/22/2021 11:45 [facility] [place] TYPE: Emergency COMPLAINT: - ANXIETY, CHEST TIGHTENS SINCE LAST WEDNESDAY DIAGNOSES: - Anxiety disorder, unspecified - Nicotine dependence, unspecified, uncomplicated - Allergy status to other drugs, medicaments and biological substances - Allergy status to narcotic agent - Other chest pain - Essential (primary) hypertension - Thyrotoxicosis, unspecified without thyrotoxic crisis or storm - Other nursing home (current) drug therapy - Acute stress reaction 11/26/2020 23:22 [facility] [place] TYPE: Emergency COMPLAINT: - RT SIDE NECK AND SHOULDER PAIN DIAGNOSES: - Cervicalgia - Other nursing home (current) drug therapy - Allergy status to narcotic agent - Muscle spasm of back - Allergy status to other drugs, medicaments and biological substances - Nicotine dependence, unspecified, uncomplicated - Essential (primary) hypertension INPATIENT VISIT TRACKING (12 MO.) 10/01/2021 18:50 [facility] TYPE: Neurology DIAGNOSES: - Tobacco use - Transient cerebral ischemic attack, unspecified - Hyperlipidemia, unspecified - Fibromyalgia - Cerebrovascular disease, unspecified - Essential (primary) hypertension - Anesthesia of skin - Cerebral atherosclerosis - Occlusion and stenosis of right carotid artery - Cerebral infarction, unspecified [email or web address]
[2021-10-26] MEDS ORDERED: PLAVIX75 MG PO (14:10)
[2021-10-26] MEDS ORDERED: BAYER CHEWABLE81 MG PO (14:11)
--- NOTE | 2021-10-27 06:51 | EKG ---
[facility] [address] [facility] [place], [place] [address] Signed Normal sinus rhythm Normal ECG When compared with ECG of 15-OCT-2021 18:12, No significant change was found Confirmed by DIVINE ROBLEDO MD ([id number]) on 10/27/2021 6:51:13 AM Electronically Signed By: DIVINE ROBLEDO MD 10/27/21 0651 PATIENT NAME: CARMEN ROBLES Electrocardiogram DATE OF : 61 PHYSICIAN: DIVINE ROBLEDO MD REPORT #: [id number] REPORT IS CONFIDENTIAL AND NOT TO BE RELEASED WITHOUT AUTHORIZATION
== END 2021-10-26 16:38 | disposition home or self-care (01) ==
LOC: ED 13:45
DX: J38.3 Other diseases of vocal cords (principal); I10 Essential (primary) hypertension; G25.81 Restless legs syndrome; Z86.73 Personal history of transient ischemic attack (TIA), and cerebral infarction without residual deficits; F17.200 Nicotine dependence, unspecified, uncomplicated; Z88.5 Allergy status to narcotic agent; Z88.8 Allergy status to other drugs, medicaments and biological substances; Z79.82 Long term (current) use of aspirin; Z79.899 Other long term (current) drug therapy; Z20.822 Contact with and (suspected) exposure to COVID-19
CPT/HCPCS: 36415; 70450; 70496; 70498; 71045; 80053; 84484; 85025; 85610; 85730; 93005; 93010; 99284-25; C9803; J1100; Q9967; U0003

== ENCOUNTER 2021-12-10 04:42 | Emergency (ER) | payer MEDICARE ==
[~2021-12-10] VITALS: Ht 165.1 cm; Wt 90.7 kg
[~2021-12-10 04:42] MED LIST changes: +BAYER CHEWABLE81 MG PO; +PLAVIX75 MG PO
--- OUTSIDE RECORDS SUMMARY | 2021-12-10 04:44 | XMS ---
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 Care History Medical/Surgical 03/04/2021 [facility] CONTACTED PCP OFFICE [phone]- PATIENT HAS AN APT 03/05/21 FOR A FOLLOW UP APT. - PROVIDER OFFICE HAS NOT RECEIVED THE LAST 2 ED VISIT RECORDS-REQUESTED THEY BE FAXED TO [phone]. - W SENT CLINICALS PER REQUEST. EJeni VISIT COUNT (12 MO.) 6 [facility] TOTAL 6 NOTE: Visits indicate total known visits. 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 - Other diseases of vocal cords - Allergy status to other drugs, medicaments and biological substances - Allergy status to narcotic agent - Essential (primary) hypertension - Dysphagia, unspecified - Other long term care pharmacist (current) drug therapy - Nicotine dependence, unspecified, uncomplicated - Personal history of transient ischemic attack (TIA), and cerebral infarction without residual deficits - Restless legs syndrome [facility] [place] [facility] COMPLAINT: - HEADACHE DIAGNOSES: - Headache, unspecified - [facility] (current) use of aspirin - Allergy status to narcotic agent - Nicotine dependence, unspecified, uncomplicated - Unspecified sequelae of cerebral infarction - Allergy status to other drugs, medicaments and biological substances - Essential (primary) hypertension - Other long term care pharmacist (current) drug therapy 10/01/2021 13:33 [facility] [place] [facility]: Emergency COMPLAINT: - POSS STROKE DIAGNOSES: - Other long term care pharmacist (current) drug therapy - Nicotine dependence, unspecified, uncomplicated - NIHSS score 1 - Cerebral infarction, unspecified - Allergy status to other drugs, medicaments and biological substances - Allergy status to narcotic agent - Essential (primary) hypertension - Anesthesia of skin 03/03/2021 17:51 [facility] [place] [facility]: Emergency COMPLAINT: - DIFFICULTY BREATHING DIAGNOSES: - Allergy status to narcotic agent - Nicotine dependence, unspecified, uncomplicated - Essential (primary) hypertension - Allergy status to other drugs, medicaments and biological substances - Other chest pain - Other long term care pharmacist (current) drug therapy 02/22/2021 11:45 [facility] [place] TYPE: Emergency COMPLAINT: - ANXIETY, CHEST TIGHTENS SINCE LAST WEDNESDAY DIAGNOSES: - Anxiety disorder, unspecified - Nicotine dependence, unspecified, uncomplicated - Allergy status to other drugs, medicaments and biological substances - Allergy status to narcotic agent - Other chest pain - Essential (primary) hypertension - Thyrotoxicosis, unspecified without thyrotoxic crisis or storm - Other shelter (current) drug therapy - Acute stress reaction INPATIENT VISIT TRACKING (12 MO.) 10/01/2021 18:50 [facility]: [facility] DIAGNOSES: - Tobacco use - Transient cerebral ischemic attack, unspecified - Hyperlipidemia, unspecified - Fibromyalgia - Cerebrovascular disease, unspecified - Essential (primary) hypertension - Anesthesia of skin - Cerebral atherosclerosis - Occlusion and stenosis of right carotid artery - Cerebral infarction, unspecified [email or web address]
--- NOTE | 2021-12-11 11:43 | EKG ---
[facility] [address] [facility] [place], [place] [address] Signed Normal sinus rhythm Normal ECG When compared with ECG of 26-OCT-2021 14:30, No significant change was found Confirmed by CAROL ANN PALMA MD ([id number]) on 12/11/2021 11:43:06 AM Electronically Signed By: CAROL ANN PALMA MD 12/11/21 1143 PATIENT NAME: CARMEN ROBLES OLEG Electrocardiogram DATE OF : 61 PHYSICIAN: CAROL ANN PALMA MD REPORT #: [id number] REPORT IS CONFIDENTIAL AND NOT TO BE RELEASED WITHOUT AUTHORIZATION
== END 2021-12-10 06:10 | disposition home or self-care (01) ==
LOC: ED 04:42
DX: R20.0 Anesthesia of skin (principal); Z86.73 Personal history of transient ischemic attack (TIA), and cerebral infarction without residual deficits; I10 Essential (primary) hypertension; G25.81 Restless legs syndrome; F17.200 Nicotine dependence, unspecified, uncomplicated; Z88.5 Allergy status to narcotic agent; Z88.8 Allergy status to other drugs, medicaments and biological substances; Z79.899 Other long term (current) drug therapy; Z79.82 Long term (current) use of aspirin
CPT/HCPCS: 70450; 70496; 70498; 71045; 80053; 85025; 85610; 85730; 93005; 93010; 99284-25; Q9967

== ENCOUNTER 2025-08-22 13:21 | Emergency (ER) | payer OTHER, MEDICARE ==
[~2025-08-22] VITALS: Ht 165.1 cm; Wt 69.8 kg
[~2025-08-22 13:21] MED LIST changes: +CARBIDOPA-LEVO1 EA11 PO; +LISINOPRIL40 MG PO; +NORVASC5 MG PO; +PREGABALIN50 MG PO; +TRANSDERM-SCOP1 EACH TD
[2025-08-22] MEDS ORDERED: HYDROmorphone HCL 1 MG/ML SYR IV ONE ×3 (14:00→14:30)
[2025-08-22 16:37] VITALS: BP 152/94
== END 2025-08-22 16:37 | disposition home or self-care (01) ==
LOC: ED 13:21
DX: S63.502A Unspecified sprain of left wrist, initial encounter (principal); W54.1XXA Struck by dog, initial encounter; F17.200 Nicotine dependence, unspecified, uncomplicated; Z88.8 Allergy status to other drugs, medicaments and biological substances
CPT/HCPCS: 71250; 73060; 73110; 73130; 96374; 99284-25; J1171